=== PATIENT | male | born 1945 | race Caucasian/White ===

== ENCOUNTER → 2018-04-13 09:57 | Outpatient (CLI) | payer MEDICARE, OTHER, SELFPAY | PROVIDERS: PCP Family Medicine; Visit Provider Family Medicine | DX: Z00.00 Encounter for general adult medical examination without abnormal findings (principal) | CPT/HCPCS: 84153 ==

== ENCOUNTER 2018-11-04 06:45 | Day surgery (SDC) | payer MEDICARE, OTHER, SELFPAY ==
[2018-11-04] VITALS (7 sets, daily range): BP systolic 88–110; BP diastolic 51–68; PULSE 48–56; RESP 10–16; TEMP 36.1–36.3; O2SAT 95–99; BMI 26.5
--- NOTE | 2018-11-04 | PATH_ITS ---
[facility] Accession Number: [id number] . 01 Material submitted: . ASCENDING COLON NEAR CECUM POLYP . 02 Diagnosis: Ascending Colon Polyp, Near Cecum: Tubular adenoma. MRV/11/07/2018 . 02 Electronically signed: . Ash Grant MD, PhD, Pathologist NPI- [id number] . 01 Gross description: . Received one formalin-filled container labeled with the patient's name and labeled ascending colon near cecum polyp. The specimen consists of two 0.2-0.3 cm portions of tissue, entirely submitted in one cassette. ([id number]) /FRR . 02 Pathologist provided ICD-10: D12.2 . 02 CPT . 771547 Performed at: [address] [facility] [address] [id number] MD Carlos Mae MD Phone: [phone] Performed at: 02 [facility] [address] [place], [place] [id number] MD Zoe Rogers MD Phone: [phone]
--- NOTE | 2018-11-04 08:17 | PM.HP.1 ---
History of Present Illness Date Patient Seen: 11/04/18 Time Patient Seen: 08:10 Chief complaint: [id number] Narrative: Patient here for screening colonoscopy. Last exam 10 years ago. No history of colon cancer. Patient History Medical History History of cataract (Chronic) History of hearing loss (Chronic) History of sleep apnea (Chronic) History of atrial fibrillation (Resolved) Surgical History History of cardiac radiofrequency ablation (RFA) History of cardiac radiofrequency ablation (RFA) Status post knee surgery Family & Social History Family History: Reviewed 11/04/18 by Sergey Alvarado MD Social History: household members spouse Tobacco & Substance use: Smoking Status Never smoker Meds Home Medications Medication Instructions Recorded Confirmed Type ezetimibe 10 mg tablet 10 mg PO DAILY 04/13/18 11/04/18 History pravastatin 40 mg PO HS #90 tab 07/22/18 11/04/18 Rx aspirin 81 mg PO DAILY 11/04/18 11/04/18 History Allergies Allergy/AdvReac Type Severity Reaction Status Date / Time codeine [CODEINE] Allergy Intermediate MIGRAINE Verified 11/04/18 07:44 Review of Systems Review of Systems All systems reviewed & are unremarkable except as noted in HPI and below Exam Vital Signs (past 8 hours): - 11/04/18 07:10 11/04/18 07:43 Temperature 97.3 F L Pulse Rate 54 L Respiratory Rate 16 Blood Pressure 110/68 Pulse Oximetry 99 Oxygen Delivery Method Room Air Narrative Exam Narrative: Co Operative no apparent distress. Lungs clear to auscultation no rales or rhonchi heart regular rate and rhythm without murmur or gallop abdomen is mildly protuberant soft nontender without mass. Alert and oriented x3 Assessment & Plan Plan: Assessment/Plan Narrative: Patient for screening colonoscopy. I have discussed the procedure and the rationale with the patient including risks of bleeding, perforation which would necessitate a major operation, failure to find remove all lesions and the potential to tattoo. They appeared to understand and wished to proceed.
--- NOTE | 2018-11-04 08:20 | PM.PREOP ---
Pre-operative Note Interval Note Pre-op Check: Yes History & Physical exam performed today by Physician Changes: No ASA Class (for procedural sedation): II
[2018-11-04] MEDS: fentaNYL 250 MCG/5 ML INJ IV (08:59)
[2018-11-04] MEDS: MIDAZOLAM 5 MG/5 ML VIAL IV (09:01)
--- NOTE | 2018-11-04 09:11 | PM.OP.ENDO ---
Operative Date/Time/Diagnoses Date of procedure: 11/04/18 Time of procedure: 09:00 Pre-op diagnosis: Screening exam in Post-op diagnosis: same (Small polyp in the ascending colon. Sigmoid diverticulosis extensive. Internal hemorrhoids) Procedure & Clinicians Study performed: Colonoscopy with cold biopsy Same procedure as scheduled: Yes Indications: Screening. Last exam 10 years ago. Surgeon: Sergey Alvarado Procedure Notes SCOAP/Timeout: Performed Procedure in detail: The patient was placed in left lateral decubitus position underwent IV sedation directed by the surgeon consisting fentanyl Versed. Digital exam was remarkable for enlarged prostate. Scope was advanced through the rectum sigmoid where encountered numerous diverticuli. We continued on in the descending and transverse colon. Pressure was applied in a stiffener so on the ascending colon side of the ileocecal valve there was a small polypoid lesion which I biopsied and removed. The scope was gradually brought out. No other lesions were seen. The scope was retroflexed in the rectum. Patient had some small internal hemorrhoids with scarring. No active ulcerations seen. The scope was removed the patient tolerated the procedure well Scope withdrawal time: 9 min Sedation minutes: 26 Findings: diverticulosis, internal hemorrhoids, polyp and other findings (Enlarged prostate) Specimen(s): other (Polyps) Complications: none Recommendations: Colonscopy in 5 years Follow up: as needed Disposition: PACU
--- NOTE | 2018-11-04 09:15 | P.OP.ENDO_ITS ---
Operative Date/Time/Diagnoses Date of procedure: 11/04/18 Time of procedure: 09:00 Pre-op diagnosis: Screening exam in Post-op diagnosis: same (Small polyp in the ascending colon. Sigmoid diverticulosis extensive. Internal hemorrhoids) Procedure & Clinicians Study performed: Colonoscopy with cold biopsy Same procedure as scheduled: Yes Indications: Screening. Last exam 10 years ago. Surgeon: Sergey Alvarado Procedure Notes SCOAP/Timeout: Performed Procedure in detail: The patient was placed in left lateral decubitus position underwent IV sedation directed by the surgeon consisting fentanyl Versed. Digital exam was remarkable for enlarged prostate. Scope was advanced through the rectum sigmoid where encountered numerous diverticuli. We continued on in the descending and transverse colon. Pressure was applied in a stiffener so on the ascending colon side of the ileocecal valve there was a small polypoid lesion which I biopsied and removed. The scope was gradually brought out. No other lesions were seen. The scope was retroflexed in the rectum. Patient had some small internal hemorrhoids with scarring. No active ulcerations seen. The scope was removed the patient tolerated the procedure well Scope withdrawal time: 9 min Sedation minutes: 26 Findings: diverticulosis, internal hemorrhoids, polyp and other findings ( Enlarged prostate) Specimen(s): other (Polyps) Complications: none Recommendations: Colonscopy in 5 years Follow up: as needed Disposition: PACU
[2018-11-04] MEDS: SODIUM CHLORIDE 0.9% 1,000 ML 200 ML IV (09:21)
== END 2018-11-04 10:16 | disposition home or self-care (01) ==
PROVIDERS: PCP Family Medicine; Visit Provider Specialist
PROC: 0DJD8ZZ Inspection of Lower Intestinal Tract, Via Natural or Artificial Opening Endoscopic (ICD-10-PCS; CPT 45378; principal; 2018-11-04 07:45)
DX: Z12.11 Encounter for screening for malignant neoplasm of colon (principal); K57.30 Diverticulosis of large intestine without perforation or abscess without bleeding; K64.8 Other hemorrhoids; N40.0 Benign prostatic hyperplasia without lower urinary tract symptoms; D12.2 Benign neoplasm of ascending colon
CPT/HCPCS: 45380; 88305; 99152; 99153; J2250; J3010

== ENCOUNTER 2018-12-05 11:21 | Emergency (ER) | payer MEDICARE, OTHER, SELFPAY ==
[2018-12-05 11:28] VITALS: BP 133/86; PULSE 55; RESP 15; TEMP 36.9; O2SAT 98; BMI 26.5
--- NOTE | 2018-12-05 12:41 | DI.RAD.S_ITS ---
PROCEDURE: XR CHEST 1V INDICATIONS: chest pain TECHNIQUE: One view of the chest was acquired. COMPARISON: None. FINDINGS: Surgical changes and devices: None. Lungs and pleura: No pleural effusions or pneumothorax. Lungs are clear. Mediastinum: Mediastinal contours appear normal. Heart size is normal. Bones and chest wall: No suspicious bony lesions. Overlying soft tissues appear unremarkable. IMPRESSION: Normal for age, source of current chest pain symptoms is not seen. Dictated by: Mk Lauren M.D. on 12/05/2018 at 13:11 Approved by: Mk Lauren M.D. on 12/05/2018 at 13:11
[2018-12-05 12:55] LABS: Add Manual Diff / Slide Review NO; Basophils Absolute Auto 0 /uL (0-100); Basophils Percent Auto 0.4 % (0-2); Eosinophils Absolute Auto 300 /uL (0-450); Eosinophils Percent Auto 3.5 % (2-4); Hematocrit 43.7 % (41-53); Hemoglobin 14.5 g/dL (13.5-17.5); Lymphocytes Absolute Auto 2100 /uL (1100-4500); Lymphocytes Percent Auto 28.4 % (25-40); Mean Corpuscular HGB Conc 33.2 % (30-36); Mean Corpuscular Hemoglobin 29.6 PG (26-34); Mean Corpuscular Volume 89.3 fL (80-100); Monocytes Absolute Auto 600 /uL (0-900); Monocytes Percent Auto 7.4 % (3-14); Neutrophils Absolute Auto 4500 /uL (1500-7000); Neutrophils Percent Auto 60.3 % (50-75); Platelet Count 180 X10^3/uL (150-400); Red Cell Distribution Width 13.5 % (11.6-14.8); White Blood Cell Count 7.4 X10^3/uL (4.5-11.0)
[2018-12-05 12:58] LABS: Alanine Aminotransferase 36 IU/L (21-72); Albumin 4.2 g/dL (3.5-5.0); Albumin Globulin Ratio 1.3 (1.0-2.8); Alkaline Phosphatase 43 U/L (38-126); Aspartate Aminotransferase 29 IU/L (17-59); BUN Creatinine Ratio 23.3 (6-22); Bilirubin Total 0.7 mg/dL (0.2-1.3); Blood Urea Nitrogen 21 mg/dL (9-20); Calcium 9.4 mg/dL (8.4-10.2); Carbon Dioxide 26 mmol/L (22-32); Chloride 107 mmol/L (98-107); Creatine Kinase 51 U/L (55-170); Estimated Glomerular Filt Rate > 60.0 mL/min (>60); Globulin 3.3 g/dL (1.7-4.1); Glucose 129 mg/dL (80-110); HEMOLYSIS < 15 (0-50); Potassium 4.2 mmol/L (3.4-5.1); Sodium 143 mmol/L (137-145); Total Protein 7.5 g/dL (6.3-8.2)
[2018-12-05 13:00] VITALS: BP 108/58; PULSE 44; RESP 94; O2SAT 94
[2018-12-05 13:12] LABS: Troponin I < 0.012 ng/mL (0.01-0.034)
[2018-12-05 13:49] VITALS: BP 108/62; PULSE 54; RESP 15
--- NOTE | 2018-12-16 10:11 | ED.CHESTPAIN ---
HPI - Chest Pain General Chief Complaint: Chest Pain Stated Complaint: CHEST PAINS OFF AND ON X1 DAY Time Seen by Provider: 12/05/18 11:38 Source: patient Mode of arrival: ambulatory Limitations: no limitations History of Present Illness HPI narrative: Patient complains of palpitations and a pressure feeling in his chest on and off throughout the day for the last few days. He has a history of paroxysmal atrial fibrillation, and states he has had palpitations previously. Patient does note that he has occasionally felt lightheaded today, as well. He denies any actual pain in his chest. No dyspnea. No nausea or vomiting. Patient states that he has no history of coronary artery disease. Patient states he is feeling fine lying in the bed right now. Patient reports that he runs 5 miles several times a week, and has no problem with this. In fact, he states that in recent runs, the symptoms actually have improved while he was exercising. The patient has seen Dr. Juarez of Cardiology in the past, but since Dr. Juarez [facility], has not seen a paving supervisor. However, he states he was told that he would be assigned to another paving supervisor in the group. Related Data Home Medications Medication Instructions Recorded Confirmed ezetimibe 10 mg tablet 10 mg PO DAILY 04/13/18 12/05/18 aspirin 81 mg PO DAILY 11/04/18 12/05/18 pravastatin 40 mg PO BEDTIME 12/05/18 12/05/18 Allergies Allergy/AdvReac Type Severity Reaction Status Date / Time codeine [CODEINE] Allergy Intermediate MIGRAINE Verified 12/05/18 11:28 Review of Systems Constitutional Denies chills, Denies fever(s), Denies lethargy and Denies weakness Eyes Denies change in vision, Denies eye discharge, Denies irritation and Denies loss of vision ENT Ears, Nose, Mouth, and Throat: Denies change in voice, Denies neck pain and Denies sore throat Cardiovascular Denies chest pain, Denies irregular heart rhythm, Denies lightheadedness, Reports palpitations, Denies dyspnea, Denies dyspnea on exertion and Denies orthopnea Comments: Chest pressure Respiratory Denies cough, Denies dyspnea, Denies dyspnea on exertion and Denies wheezing Gastrointestinal Gastrointestinal: Denies abdominal pain, Denies change in bowel habits, Denies diarrhea, Denies nausea and Denies vomiting Genitourinary Denies hematuria, Denies flank pain, Denies urinary incontinence and Denies urinary urgency Musculoskeletal Denies neck pain Integumentary/Breasts Denies pruritus, Denies erythema, Denies rash and Denies wounds Neurologic Denies confusion, Denies loss of vision and Denies weakness Psychiatric Denies anxiety, Denies confusion, Denies depression, Denies homicidal ideation and Denies suicidal ideation Endocrine Reports palpitations Hematologic/Lymphatic Denies easy bruising Allergic/Immunologic Denies wheezing [facility] Medical History History of cataract (Chronic) History of hearing loss (Chronic) History of sleep apnea (Chronic) History of atrial fibrillation (Resolved) Surgical History History of cardiac radiofrequency ablation (RFA) History of cardiac radiofrequency ablation (RFA) Status post knee surgery Social History household members: spouse Smoking Status: Never smoker Social History household members: spouse Smoking Status: Never smoker Exam Initial Vital Signs Initial Vital Signs: Vital Signs Temperature 98.5 F 12/05/18 11:28 Pulse Rate 55 L 12/05/18 11:28 Respiratory Rate 15 12/05/18 11:28 Blood Pressure 133/86 12/05/18 11:28 Pulse Oximetry 98 12/05/18 11:28 Const General: cooperative, healthy appearing, well developed and No in distress Nutritional Appearance: well nourished Orientation: alert, awake, oriented x3 and not confused Other: Patient is very well appearing. [facility] Head: normocephalic and atraumatic Ears: external ears normal Nose: external nose normal and No nasal discharge Face and sinus: face symmetric and No dry mucous membranes Mouth: oral mucosae normal and moist mucous membranes Teeth and gingiva: dentition normal Eyes General: appearance normal, both eyes and all related structures Eyelids: eyelids normal Conjunctivae: conjunctivae normal Sclera: sclerae normal Pupils: PERRL EOM: EOM intact bilaterally Neck Neck: normal visual inspection, trachea midline, No lymphadenopathy, No midline deformity and No JVD Lymphatic: No lymphedema Chest Chest: normal inspection of the chest Resp Effort & Inspection: normal respiratory effort, able to speak in complete sentences, no respiratory distress and no use of accessory muscles Auscultation: clear to auscultation bilaterally, no rales, no rhonchi and no wheezes Cardio Rate: bradycardic Rhythm: regular rhythm Heart Sounds: no click, no gallops, no murmurs and no rubs Pulses: normal peripheral pulses GI Inspection: non-distended Palpation: soft, no hepatosplenomegaly, No guarding, No pulsatile mass and No tender Auscultation: normal bowel sounds Back/Spine/Pelvis Back: No CVA tenderness Cervical Spine: cervical ROM normal and No pain with cervical ROM Thoracic/Lumbar Spine: thoracic and lumbar spine normal to inspection Skin General: no rashes or lesions noted, No jaundice and No petechiae Neuro General: alert, oriented x3, gait normal and no focal motor deficits Speech: speech normal Extrem General: full ROM, no clubbing, cyanosis or edema, no pedal edema and no calf tenderness Psych Appearance: well kempt Mental Status: mental status grossly normal Attitude: cooperative Thought Content: normal and suicidality Judgment: judgment good Course Course Narrative: The patient overall appeared well, though he was found to be mildly bradycardic. His laboratory studies were unremarkable. Patient was kept on the residential monitor here in the emergency department, and EKG was performed, showing sinus bradycardia and sinus arrhythmia.. This patient had a history of a high-level of fitness, and reported running a number of miles a week. With this, he had not had any cardiac symptoms, and in fact, felt that his symptoms improved when exercising. I did not feel this patient had had a coronary event, and I felt the likelihood of coronary artery disease in this patient was low, given his fitness level. I did feel he should follow up with Cardiology and his primary care physician to further evaluate his symptoms, however, and patient was agreeable to this plan. We have discussed the usual indications for return. MDM - Chest Pain Medical Records Data Attestation: I reviewed the patient's medical records. Lab Data Attestation: I reviewed the patient's lab results. Result diagrams: 12/05/18 11:45 12/05/18 11:45 Lab Results 12/05/18 12/05/18 Range/Units 11:45 11:45 WBC 7.4 (4.5-11.0) X10^3/uL RBC 4.90 (4.5-5.9) X10^6/uL Hgb 14.5 (13.5-17.5) g/dL Hct 43.7 (41-53) % MCV 89.3 (80-100) fL MCH 29.6 (26-34) PG MCHC 33.2 (30-36) % RDW 13.5 (11.6-14.8) % Plt Count 180 (150-400) X10^3/uL Neut % (Auto) 60.3 (50-75) % Lymph % (Auto) 28.4 (25-40) % Stafford % (Auto) 7.4 (3-14) % Eos % (Auto) 3.5 (2-4) % Baso % (Auto) 0.4 (0-2) % Neut # (Auto) 4500 (7014-6601) /uL Lymph # (Auto) 2100 (7945-3023) /uL Stafford # (Auto) 600 (0-900) /uL Eos # (Auto) 300 (0-450) /uL Baso # (Auto) 0 (0-100) /uL Sodium 143 (137-145) mmol/L Potassium 4.2 (3.4-5.1) mmol/L Chloride 107 (98-107) mmol/L Carbon Dioxide 26 (22-32) mmol/L BUN 21 H (9-20) mg/dL Creatinine 0.90 (0.66-1.25) mg/dL Estimated GFR > 60.0 (>60) mL/min BUN/Creatinine Ratio 23.3 H (6-22) Glucose 129 H (80-110) mg/dL Calcium 9.4 (8.4-10.2) mg/dL Total Bilirubin 0.7 (0.2-1.3) mg/dL AST 29 (17-59) IU/L ALT 36 (21-72) IU/L Alkaline Phosphatase 43 (38-126) U/L Total Creatine Kinase 51 L (55-170) U/L CK-MB (CK-2) TNP CK-MB (CK-2) Rel Index TNP Troponin I < 0.012 (0.01-0.034) ng/mL Total Protein 7.5 (6.3-8.2) g/dL Albumin 4.2 (3.5-5.0) g/dL Globulin 3.3 (1.7-4.1) g/dL Albumin/Globulin Ratio 1.3 (1.0-2.8) Imaging Data Chest x-ray: Radiologist's impression: [address] [address] XRay Report Signed Patient: Kal Grimm FMR#: [id number] : 7Acct:[id number] Age/Sex: 73 / MDate of Service: 12/05/18 Loc: ED Accession Number: [id number] Procedure: XR chest 1V Ordering Provider: Kaylah Helton MD PROCEDURE: XR CHEST 1V INDICATIONS: chest pain TECHNIQUE: One view of the chest was acquired. COMPARISON: None. FINDINGS: Surgical changes and devices: None. Lungs and pleura: No pleural effusions or pneumothorax. Lungs are clear. Mediastinum: Mediastinal contours appear normal. Heart size is normal. Bones and chest wall: No suspicious bony lesions. Overlying soft tissues appear unremarkable. IMPRESSION: Normal for age, source of current chest pain symptoms is not seen. Dictated by: Mk Lauren M.D. on 12/05/2018 at 13:11 Approved by: Mk Lauren M.D. on 12/05/2018 at 13:11 Discharge Plan Departure Patient Disposition: Home Clinical Impression: Chest pain, Bradycardia Discharge Date/Time: 12/05/18 14:16 Interventions: ED Discharge Assessment Last Done: 12/05/18 14:15 Instructions: DI for Chest Pain, DI for Bradycardia Activity Restrictions/Additional Instructions: Urine labs and EKG look good, as does your x-ray. There is no evidence of any of the serious causes of chest pain at this time. However, the best plan would be to follow up with your paving supervisor to see if you should have a repeat stress test done. You should also discuss with your paving supervisor why your heart rate is dropping low. Please call their office 1st thing tomorrow morning to set up a follow-up appointment. If any symptoms worsen, please return to the emergency department. Prescriptions: No Action ezetimibe 10 mg tablet 10 mg PO DAILY RF: 0 aspirin 81 mg Tablet,Delayed Release (Dr/Ec) 81 mg PO DAILY RF: 0 pravastatin 40 mg tablet 40 mg PO BEDTIME RF: 0 Referrals: Caryn Rivas DO [Primary Care Provider] -
--- NOTE | 2018-12-16 10:14 | ED_ITS ---
HPI - Chest Pain General Chief Complaint: Chest Pain Stated Complaint: CHEST PAINS OFF AND ON X1 DAY Time Seen by Provider: 12/05/18 11:38 Source: patient Mode of arrival: ambulatory Limitations: no limitations History of Present Illness HPI narrative: Patient complains of palpitations and a pressure feeling in his chest on and off throughout the day for the last few days. He has a history of paroxysmal atrial fibrillation, and states he has had palpitations previously. Patient does note that he has occasionally felt lightheaded today, as well. He denies any actual pain in his chest. No dyspnea. No nausea or vomiting. Patient states that he has no history of coronary artery disease. Patient states he is feeling fine lying in the bed right now. Patient reports that he runs 5 miles several times a week, and has no problem with this. In fact, he states that in recent runs, the symptoms actually have improved while he was exercising. The patient has seen Dr. Juarez of Cardiology in the past, but since Dr. Juarez fci, has not seen a race relations professor. However, he states he was told that he would be assigned to another race relations professor in the group. Related Data Home Medications Medication Instructions Recorded Confirmed ezetimibe 10 mg tablet 10 mg PO DAILY 04/13/18 12/05/18 aspirin 81 mg PO DAILY 11/04/18 12/05/18 pravastatin 40 mg PO BEDTIME 12/05/18 12/05/18 Allergies Allergy/AdvReac Type Severity Reaction Status Date / Time codeine [CODEINE] Allergy Intermediate MIGRAINE Verified 12/05/18 11:28 Review of Systems Constitutional Denies chills, Denies fever(s), Denies lethargy and Denies weakness Eyes Denies change in vision, Denies eye discharge, Denies irritation and Denies loss of vision ENT Ears, Nose, Mouth, and Throat: Denies change in voice, Denies neck pain and Denies sore throat Cardiovascular Denies chest pain, Denies irregular heart rhythm, Denies lightheadedness, Reports palpitations, Denies dyspnea, Denies dyspnea on exertion and Denies orthopnea Comments: Chest pressure Respiratory Denies cough, Denies dyspnea, Denies dyspnea on exertion and Denies wheezing Gastrointestinal Gastrointestinal: Denies abdominal pain, Denies change in bowel habits, Denies diarrhea, Denies nausea and Denies vomiting Genitourinary Denies hematuria, Denies flank pain, Denies urinary incontinence and Denies urinary urgency Musculoskeletal Denies neck pain Integumentary/Breasts Denies pruritus, Denies erythema, Denies rash and Denies wounds Neurologic Denies confusion, Denies loss of vision and Denies weakness Psychiatric Denies anxiety, Denies confusion, Denies depression, Denies homicidal ideation and Denies suicidal ideation Endocrine Reports palpitations Hematologic/Lymphatic Denies easy bruising Allergic/Immunologic Denies wheezing [facility] Medical History History of cataract (Chronic) History of hearing loss (Chronic) History of sleep apnea (Chronic) History of atrial fibrillation (Resolved) Surgical History History of cardiac radiofrequency ablation (RFA) History of cardiac radiofrequency ablation (RFA) Status post knee surgery Social History household members: spouse Smoking Status: Never smoker Social History household members: spouse Smoking Status: Never smoker Exam Initial Vital Signs Initial Vital Signs: Vital Signs Temperature 98.5 F 12/05/18 11:28 Pulse Rate 55 L 12/05/18 11:28 Respiratory Rate 15 12/05/18 11:28 Blood Pressure 133/86 12/05/18 11:28 Pulse Oximetry 98 12/05/18 11:28 Const General: cooperative, healthy appearing, well developed and No in distress Nutritional Appearance: well nourished Orientation: alert, awake, oriented x3 and not confused Other: Patient is very well appearing. [facility] Head: normocephalic and atraumatic Ears: external ears normal Nose: external nose normal and No nasal discharge Face and sinus: face symmetric and No dry mucous membranes Mouth: oral mucosae normal and moist mucous membranes Teeth and gingiva: dentition normal Eyes General: appearance normal, both eyes and all related structures Eyelids: eyelids normal Conjunctivae: conjunctivae normal Sclera: sclerae normal Pupils: PERRL EOM: EOM intact bilaterally Neck Neck: normal visual inspection, trachea midline, No lymphadenopathy, No midline deformity and No JVD Lymphatic: No lymphedema Chest Chest: normal inspection of the chest Resp Effort & Inspection: normal respiratory effort, able to speak in complete sentences, no respiratory distress and no use of accessory muscles Auscultation: clear to auscultation bilaterally, no rales, no rhonchi and no wheezes Cardio Rate: bradycardic Rhythm: regular rhythm Heart Sounds: no click, no gallops, no murmurs and no rubs Pulses: normal peripheral pulses GI Inspection: non-distended Palpation: soft, no hepatosplenomegaly, No guarding, No pulsatile mass and No tender Auscultation: normal bowel sounds Back/Spine/Pelvis Back: No CVA tenderness Cervical Spine: cervical ROM normal and No pain with cervical ROM Thoracic/Lumbar Spine: thoracic and lumbar spine normal to inspection Skin General: no rashes or lesions noted, No jaundice and No petechiae Neuro General: alert, oriented x3, gait normal and no focal motor deficits Speech: speech normal Extrem General: full ROM, no clubbing, cyanosis or edema, no pedal edema and no calf tenderness Psych Appearance: well kempt Mental Status: mental status grossly normal Attitude: cooperative Thought Content: normal and suicidality Judgment: judgment good Course Course Narrative: The patient overall appeared well, though he was found to be mildly bradycardic. His laboratory studies were unremarkable. Patient was kept on the cardiac rn here in the emergency department, and EKG was performed, showing sinus bradycardia and sinus arrhythmia.. This patient had a history of a high-level of fitness, and reported running a number of miles a week. With this, he had not had any cardiac symptoms, and in fact, felt that his symptoms improved when exercising. I did not feel this patient had had a coronary event, and I felt the likelihood of coronary artery disease in this patient was low, given his fitness level. I did feel he should follow up with Cardiology and his primary care physician to further evaluate his symptoms, however, and patient was agreeable to this plan. We have discussed the usual indications for return. MDM - Chest Pain Medical Records Data Attestation: I reviewed the patient's medical records. Lab Data Attestation: I reviewed the patient's lab results. Result diagrams: 12/05/18 11:45 12/05/18 11:45 Lab Results 12/05/18 12/05/18 Range/Units 11:45 11:45 WBC 7.4 (4.5-11.0) X10^3/uL RBC 4.90 (4.5-5.9) X10^6/uL Hgb 14.5 (13.5-17.5) g/dL Hct 43.7 (41-53) % MCV 89.3 (80-100) fL MCH 29.6 (26-34) PG MCHC 33.2 (30-36) % RDW 13.5 (11.6-14.8) % Plt Count 180 (150-400) X10^3/uL Neut % (Auto) 60.3 (50-75) % Lymph % (Auto) 28.4 (25-40) % K[place]y % (Auto) 7.4 (3-14) % Eos % (Auto) 3.5 (2-4) % Baso % (Auto) 0.4 (0-2) % Neut # (Auto) 4500 (7517-9904) /uL Lymph # (Auto) 2100 (3332-8668) /uL K[place]y # (Auto) 600 (0-900) /uL Eos # (Auto) 300 (0-450) /uL Baso # (Auto) 0 (0-100) /uL Sodium 143 (137-145) mmol/L Potassium 4.2 (3.4-5.1) mmol/L Chloride 107 (98-107) mmol/L Carbon Dioxide 26 (22-32) mmol/L BUN 21 H (9-20) mg/dL Creatinine 0.90 (0.66-1.25) mg/dL Estimated GFR > 60.0 (>60) mL/min BUN/Creatinine Ratio 23.3 H (6-22) Glucose 129 H (80-110) mg/dL Calcium 9.4 (8.4-10.2) mg/dL Total Bilirubin 0.7 (0.2-1.3) mg/dL AST 29 (17-59) IU/L ALT 36 (21-72) IU/L Alkaline Phosphatase 43 (38-126) U/L Total Creatine Kinase 51 L (55-170) U/L CK-MB (CK-2) TNP CK-MB (CK-2) Rel Index TNP Troponin I < 0.012 (0.01-0.034) ng/mL Total Protein 7.5 (6.3-8.2) g/dL Albumin 4.2 (3.5-5.0) g/dL Globulin 3.3 (1.7-4.1) g/dL Albumin/Globulin Ratio 1.3 (1.0-2.8) Imaging Data Chest x-ray: Radiologist's impression: [address] [address] XRay Report Signed Patient: Kal Grimm FMR#: [id number] : 7Acct:[id number] Age/Sex: 73 / MDate of Service: 12/05/18 Loc: ED Accession Number: [id number] Procedure: XR chest 1V Ordering Provider: Kaylah Helton MD PROCEDURE: XR CHEST 1V INDICATIONS: chest pain TECHNIQUE: One view of the chest was acquired. COMPARISON: None. FINDINGS: Surgical changes and devices: None. Lungs and pleura: No pleural effusions or pneumothorax. Lungs are clear. Mediastinum: Mediastinal contours appear normal. Heart size is normal. Bones and chest wall: No suspicious bony lesions. Overlying soft tissues appear unremarkable. IMPRESSION: Normal for age, source of current chest pain symptoms is not seen. Dictated by: Mk Lauren M.D. on 12/05/2018 at 13:11 Approved by: Mk Lauren M.D. on 12/05/2018 at 13:11 Discharge Plan Departure Patient Disposition: Home Clinical Impression: Chest pain, Bradycardia Discharge Date/Time: 12/05/18 14:16 Interventions: ED Discharge Assessment Last Done: 12/05/18 14:15 Instructions: DI for Chest Pain, DI for Bradycardia Activity Restrictions/Additional Instructions: Urine labs and EKG look good, as does your x-ray. There is no evidence of any of the serious causes of chest pain at this time. However, the best plan would be to follow up with your race relations professor to see if you should have a repeat stress test done. You should also discuss with your race relations professor why your heart rate is dropping low. Please call their office 1st thing tomorrow morning to set up a follow-up appointment. If any symptoms worsen, please return to the emergency department. Prescriptions: No Action ezetimibe 10 mg tablet 10 mg PO DAILY RF: 0 aspirin 81 mg Tablet,Delayed Release (Dr/Ec) 81 mg PO DAILY RF: 0 pravastatin 40 mg tablet 40 mg PO BEDTIME RF: 0 Referrals: Caryn Rivas DO [Primary Care Provider] -
== END 2018-12-05 14:16 | disposition home or self-care (01) ==
PROVIDERS: Emergency Provider Emergency Medicine; PCP Family Medicine
DX: R07.89 Other chest pain (principal); R00.1 Bradycardia, unspecified
CPT/HCPCS: 36591; 71045; 80053; 82550; 84484; 85025; 93005; 93010; 93041; 99283; 99285

== ENCOUNTER → 2019-03-01 08:10 | Outpatient (CLI) | payer MEDICARE, OTHER, SELFPAY ==
--- NOTE | 2019-03-01 | DI.ECHO.S_ITS ---
[facility]---------+ [facility] +---------+ : : [address] [place] : : : : [id number] : : : : Phone: [phone] Echocardiogram Report + + :Name: ZACK MOTA Study Date: 03/01/2019 Height: 70 in : :[facility] Location: [facility] Weight: 193 lb : : Gender: Male BSA: 2.1 m2 : :: 1945 Age: 73 yrs BP: 120/80 mmHg: :Reason For Study: S/P ablation of Atrial Fibrillation : :Ordering Physician: Jose Antonio : :Yelena Tovar Performed By: Ese Page : + + Interpretation Summary The left ventricle is normal in size. There is normal left ventricular wall thickness. The ejection fraction is estimated to be 60-65%. There are no focal wall motion abnormalities. The right ventricle is normal in size and function. Pulmonary artery pressures cannot be estimated because of the lack of a measurable TR jet velocity. The left atrium is moderately dilated. No significant valvular abnormalities. No prior echo for comparison. Procedure: A two-dimensional transthoracic echocardiogram with color flow and Doppler was performed. The study quality was technically adequate. There is no prior echocardiogram noted for this patient. The heart rate ranged between 47-56 bpm during the study. Left Ventricle: The left ventricle is normal in size. There is normal left ventricular wall thickness. The ejection fraction is estimated to be 60-65%. There are no focal wall motion abnormalities. There is a significant dyssynchronous contraction pattern, consistent with a conduction abnormality. Diastolic parameters suggest probable normal left ventricular diastolic function and normal filling pressures. Right Ventricle: The right ventricle is normal in size and function. Atria: The left atrium is moderately dilated. Right atrial size is normal. There is no Doppler evidence for an interatrial shunt. Mitral Valve: There is a flat closure plane of the the mitral valve leaflets. There is trace mitral regurgitation. Aortic Valve: The aortic valve is trileaflet. The aortic valve opens well. The aortic valve is slightly calcified. No aortic regurgitation is present. Tricuspid Valve: The tricuspid valve is normal in structure and function. There is a trace or physiologic amount of tricuspid regurgitation. Pulmonary artery pressures cannot be estimated because of the lack of a measurable TR jet velocity. Pulmonic Valve: The pulmonic valve is not well seen, but is grossly normal. There is trace pulmonic regurgitation. Great Vessels: The aortic root is normal size. The ascending aorta is mildly enlarged. The pulmonary artery is not well visualized, but is probably normal size. The IVC is of normal diameter and collapses greater than 50% with a sniff. This suggests a low right atrial pressure of 3 mm Hg. Pericardium/ Pleura There is no pericardial effusion. There is no pleural effusion. MMode/2D Measurements & Calculations LVIDd: 4.4 cm LVOT diam: 2.2 cm LVIDs: 2.8 cm Ao root diam: 3.7 cm FS: 38.0 % asc Aorta Diam: 3.5 cm EPSS: 0.21 cm IVSd: 0.86 cm LVPWd: 0.88 cm LV strange. diameter/BSA (cm/m^2): 2.2 LV sys. diameter/BSA (cm/m^2): 1.3 LA A2 area: 28.3 cm2 RA long axis: 5.6 cm LA A4 area: 29.2 cm2 RA area: 18.1 cm2 LA length (vol): 6.4 cm RA vol: 49.9 ml LA vol: 109.6 ml RA : 24.3 ml/m2 LA vol index: 53.3 ml/m2 IVC diam: 1.7 cm RVD1 (basal): 4.2 cm TAPSE: 2.8 cm Doppler Measurements & Calculations Ao V2 max: 176.1 cm/sec LVOT Max Deangelo: 98.4 cm/sec Ao V2 mean: 120.7 cm/sec LV V1 max P.9 mmHg Ao max P.4 mmHg LV V1 VTI: 21.1 cm Ao mean P.6 mmHg KATINA(I,D): 2.2 cm2 Ao V2 VTI: 35.1 cm KATINA(V,D): 2.1 cm2 sev ratio: 0.60 KATINA indexed to BSA (cm^2/m^2): 1.1 MV E max deangelo: 80.2 cm/sec PA V2 max: 59.9 cm/sec MV A max deangelo: 41.8 cm/sec PA V2 mean: 41.8 cm/sec MV E/A: 1.9 PA mean P.77 mmHg Med Peak E' Deangelo: 8.7 cm/sec PA Accel Time: 0.10 sec E/E' med: 9.2 Lat Peak E' Deangelo: 11.2 cm/sec E/E' lat: 7.2 E/e' average: 8.2 MV dec time: 0.17 sec MV P1/2t: 49.7 msec MV P1/2t max deangelo: 81.3 cm/sec SV(LVOT): 78.1 ml MVA(2t): 4.4 cm2 Electronically signed by: Jose Antonio Kirk M.D. on Reading Physician:03/01/2019 05:30 PM
== END ==
PROVIDERS: PCP Family Medicine; Visit Provider Hospitalist
DX: I48.91 Unspecified atrial fibrillation (principal); I51.7 Cardiomegaly; Z98.890 Other specified postprocedural states
CPT/HCPCS: 93306

== ENCOUNTER → 2020-05-10 11:43 | Outpatient (CLI) | payer MEDICARE, OTHER, SELFPAY ==
[2020-05-10 12:21] LABS: Add Manual Diff / Slide Review NO; Basophils Absolute Auto 0 /uL (0-100); Basophils Percent Auto 0.5 % (0-2); Eosinophils Absolute Auto 400 /uL (0-450); Hematocrit 42.7 % (41-53); Hemoglobin 14.1 g/dL (13.5-17.5); Lymphocytes Absolute Auto 2900 /uL (1100-4500); Lymphocytes Percent Auto 28.6 % (25-40); Mean Corpuscular HGB Conc 33.1 % (30-36); Mean Corpuscular Hemoglobin 29.6 PG (26-34); Mean Corpuscular Volume 89.5 fL (80-100); Monocytes Absolute Auto 900 /uL (0-900); Monocytes Percent Auto 9.3 % (3-14); Neutrophils Absolute Auto 5800 /uL (1500-7000); Neutrophils Percent Auto 57.6 % (50-75); Platelet Count 181 X10^3/uL (150-400); Red Blood Cell Count 4.77 X10^6/uL (4.5-5.9); Red Cell Distribution Width 14.1 % (11.6-14.8)
[2020-05-10 12:35] LABS: Alanine Aminotransferase 27 IU/L (<50); Albumin 4.1 g/dL (3.5-5.0); Albumin Globulin Ratio 1.3 (1.0-2.8); Alkaline Phosphatase 38 U/L (38-126); Aspartate Aminotransferase 33 IU/L (17-59); BUN Creatinine Ratio 40.4 (6-22); Bilirubin Total 0.5 mg/dL (0.2-1.3); Blood Urea Nitrogen 36 mg/dL (9-20); Carbon Dioxide 30 mmol/L (22-32); Chloride 107 mmol/L (98-107); Creatine Kinase 63 U/L (55-170); Estimated Glomerular Filt Rate > 60.0 mL/min (>60); Globulin 3.1 g/dL (1.7-4.1); Glucose 87 mg/dL (80-110); HEMOLYSIS < 15 (0-50); Sodium 141 mmol/L (137-145); Total Protein 7.2 g/dL (6.3-8.2)
== END ==
PROVIDERS: PCP Family Medicine; Referring Provider Hospitalist; Visit Provider Hospitalist
DX: K83.1 Obstruction of bile duct (principal)
CPT/HCPCS: 36415; 80053; 82550; 85025

== ENCOUNTER → 2020-06-11 11:50 | Outpatient (CLI) | payer MEDICARE, OTHER, SELFPAY ==
[2020-06-11 13:29] LABS: Cholesterol 200 mg/dL (140-199); HDL Cholesterol 33 mg/dL (40-60); LDL Cholesterol Calculated 129 mg/dL (<100); Triglycerides 189 mg/dL (35-150)
[2020-06-11 15:33] LABS: Prostate Specific Antigen Scrn 2.66 ng/mL (0.1-4.0)
== END ==
PROVIDERS: PCP Family Medicine; Referring Provider Hospitalist; Visit Provider Hospitalist
DX: I48.0 Paroxysmal atrial fibrillation (principal); E78.5 Hyperlipidemia, unspecified; Z12.5 Encounter for screening for malignant neoplasm of prostate
CPT/HCPCS: 36415; 80061; G0103

== ENCOUNTER → 2020-07-30 15:39 | Outpatient (CLI) | payer MEDICARE, OTHER, SELFPAY ==
[2020-07-30 16:38] LABS: Influenza A - CEPHEID Flu A NEGATIVE (NEGATIVE); Influenza B - CEPHEID Flu B NEGATIVE (NEGATIVE)
[2020-07-31 19:05] LABS: COVID19 Sendout Not Detected (Not Detect)
== END ==
PROVIDERS: PCP Family Medicine; Visit Provider Physician Assistant
DX: Z11.59 Encounter for screening for other viral diseases (principal); R05 Cough
CPT/HCPCS: 87502; 87635

== ENCOUNTER → 2020-07-30 15:56 | Outpatient (CLI) | payer MEDICARE, OTHER, SELFPAY ==
--- NOTE | 2020-07-30 16:00 | DI.RAD.S_ITS ---
PROCEDURE: XR CHEST 2V INDICATIONS: cough TECHNIQUE: 2 views of the chest were acquired. COMPARISON: [facility], CR, XR CHEST 1V, 12/05/2018, 12:48. FINDINGS: Surgical changes and devices: None. Lungs and pleura: Subtle hazy opacities are seen in bilateral lower lung cook more prominent on the left side near left heart border better seen on AP view. No pleural effusions or pneumothorax. Mediastinum: Mediastinal contours are normal. Heart size is normal. Bones and chest wall: No suspicious bony abnormalities. Soft tissues appear unremarkable. IMPRESSION: Finding is concerning for subtle patchy bilateral lower lobe infiltrates. No pleural effusion or pneumothorax. Dictated by: Helder Daniel M.D. on 07/30/2020 at 16:21 Approved by: Helder Daniel M.D. on 07/30/2020 at 16:22
== END ==
PROVIDERS: PCP Family Medicine; Referring Provider Family Medicine; Visit Provider Family Medicine
DX: Z11.59 Encounter for screening for other viral diseases (principal); R05 Cough
CPT/HCPCS: 71046; 87502; 87635

== ENCOUNTER → 2020-08-07 09:15 | Outpatient (CLI) | payer MEDICARE, OTHER, SELFPAY ==
--- NOTE | 2020-08-07 09:37 | DI.RAD.S_ITS ---
PROCEDURE: XR CHEST 2V INDICATIONS: cough TECHNIQUE: 2 views of the chest were acquired. COMPARISON: , CR, XR CHEST 2V, 07/30/2020, 15:52. , CR, XR CHEST 1V, 12/05/2018, 12:48. FINDINGS: Surgical changes and devices: None. Lungs and pleura: Mild opacity at the left lung base which appears similar to the prior exam. Opacity at the right lung base is no longer apparent. No pleural effusions or pneumothorax. Mediastinum: Mediastinal contours are unchanged. Heart size is within normal limits. Bones and chest wall: No suspicious bony abnormalities. Soft tissues appear unremarkable. IMPRESSION: Mild opacity at the left lung base is similar to the prior exam. This is suspicious for pneumonia. Resolved opacity at the right lung base likely atelectasis. Dictated by: Oracio Hill M.D. on 08/07/2020 at 10:13 Approved by: Oracio Hill M.D. on 08/07/2020 at 10:15
[2020-08-07 09:45] LABS: Bacteria Urine None Seen; RBC Urine None Seen (0-5/HPF); WBC Urine None Seen (0-5/HPF)
[2020-08-07 10:11] LABS: Add Manual Diff / Slide Review NO; Basophils Absolute Auto 0 /uL (0-100); Basophils Percent Auto 0.3 % (0-2); Eosinophils Absolute Auto 100 /uL (0-450); Eosinophils Percent Auto 0.6 % (2-4); Hematocrit 38.4 % (41-53); Hemoglobin 12.8 g/dL (13.5-17.5); Lymphocytes Absolute Auto 1600 /uL (1100-4500); Lymphocytes Percent Auto 14.5 % (25-40); Mean Corpuscular HGB Conc 33.3 % (30-36); Mean Corpuscular Hemoglobin 28.7 PG (26-34); Mean Corpuscular Volume 86.1 fL (80-100); Monocytes Absolute Auto 1300 /uL (0-900); Monocytes Percent Auto 11.4 % (3-14); Neutrophils Absolute Auto 8100 /uL (1500-7000); Neutrophils Percent Auto 73.2 % (50-75); Platelet Count 319 X10^3/uL (150-400); Red Blood Cell Count 4.46 X10^6/uL (4.5-5.9); Red Cell Distribution Width 12.8 % (11.6-14.8); White Blood Cell Count 11.1 X10^3/uL (4.5-11.0)
[2020-08-07 10:13] LABS: Alanine Aminotransferase 66 IU/L (<50); Albumin Globulin Ratio 0.9 (1.0-2.8); Alkaline Phosphatase 89 U/L (38-126); Aspartate Aminotransferase 47 IU/L (17-59); BUN Creatinine Ratio 23.7 (6-22); Bilirubin Total 0.6 mg/dL (0.2-1.3); Blood Urea Nitrogen 22 mg/dL (9-20); Calcium 9.9 mg/dL (8.4-10.2); Carbon Dioxide 31 mmol/L (22-32); Chloride 101 mmol/L (98-107); Estimated Glomerular Filt Rate > 60.0 mL/min (>60); Globulin 4.7 g/dL (1.7-4.1); Glucose 120 mg/dL (80-110); HEMOLYSIS < 15 (0-50); Potassium 4.5 mmol/L (3.4-5.1); Sodium 141 mmol/L (137-145); Total Protein 8.7 g/dL (6.3-8.2)
[2020-08-07 10:24] LABS: C-Reactive Protein Quant 19.1 mg/dL (<1.0)
[2020-08-07 10:32] LABS: Appearance Urine UA CLEAR; Bilirubin Urine UA NEGATIVE (NEGATIVE); Color Urine UA YELLOW; Glucose Urine UA NEGATIVE (Negative); Ketones Urine UA NEGATIVE (NEGATIVE); Leukocyte Esterase Urine UA NEGATIVE (NEGATIVE); Nitrite Urine UA NEGATIVE (Negative); Occult Blood Urine UA NEGATIVE (Negative); Protein Urine UA TRACE (Negative); Specific Gravity Urine UA 1.015 (1.000-1.035); Urobilinogen Urine UA 0.2 E.U./dL (0.2)
[2020-08-07 10:38] LABS: Culture Indicated Urine Cult Not Indicated; Mucus Urine 3+ (Negative)
[2020-08-07 17:41] LABS: COVID19 -Nasal RAPID Negative (Negative)
[2020-08-07 17:55] LABS: Adenovirus Not Detected (Not Detect); Bordetella pertussis Not Detected (Not Detect); Chlamydophila pneumoniae Not Detected (Not Detect); Coronavirus 229E Not Detected (Not Detect); Coronavirus HKU1 Not Detected (Not Detect); Coronavirus NL 63 Not Detected (Not Detect); Coronavirus OC43 Not Detected (Not Detect); Human Metapneumovirus Not Detected (Not Detect); Human Rhinovirus/Enterovirus Not Detected (Not Detect); Influenza A Not Detected (Not Detect); Influenza B Not Detected (Not Detect); Mycoplasma pneumoniae Not Detected (Not Detect); Parainfluenza Virus 1 Not Detected (Not Detect); Parainfluenza Virus 2 Not Detected (Not Detect); Parainfluenza Virus 3 Not Detected (Not Detect); Parainfluenza Virus 4 Not Detected (Not Detect); Respiratory Syncytial Virus Not Detected (Not Detect)
== END ==
PROVIDERS: PCP Family Medicine; Referring Provider Physician Assistant; Visit Provider Physician Assistant
DX: R05 Cough (principal); R30.0 Dysuria; R35.0 Frequency of micturition
CPT/HCPCS: 36415; 71046; 80053; 81001; 85025; 86140; 87086; 87633; 87635

== ENCOUNTER → 2020-08-22 14:53 | Outpatient (CLI) | payer MEDICARE, OTHER, SELFPAY ==
[2020-08-22 16:09] LABS: Add Manual Diff / Slide Review NO; Basophils Absolute Auto 0 /uL (0-100); Basophils Percent Auto 0.3 % (0-2); Eosinophils Absolute Auto 0 /uL (0-450); Eosinophils Percent Auto 0.1 % (2-4); Hematocrit 33.8 % (41-53); Hemoglobin 10.9 g/dL (13.5-17.5); Lymphocytes Absolute Auto 1700 /uL (1100-4500); Lymphocytes Percent Auto 10.2 % (25-40); Mean Corpuscular HGB Conc 32.2 % (30-36); Mean Corpuscular Hemoglobin 27.1 PG (26-34); Mean Corpuscular Volume 84.2 fL (80-100); Monocytes Absolute Auto 1800 /uL (0-900); Monocytes Percent Auto 10.6 % (3-14); Neutrophils Absolute Auto 13300 /uL (1500-7000); Neutrophils Percent Auto 78.8 % (50-75); Platelet Count 529 X10^3/uL (150-400); Red Blood Cell Count 4.01 X10^6/uL (4.5-5.9); Red Cell Distribution Width 13.7 % (11.6-14.8); White Blood Cell Count 16.9 X10^3/uL (4.5-11.0)
[2020-08-22 16:33] LABS: Alanine Aminotransferase 188 IU/L (<50); Albumin 3.5 g/dL (3.5-5.0); Albumin Globulin Ratio 0.7 (1.0-2.8); Alkaline Phosphatase 253 U/L (38-126); Aspartate Aminotransferase 134 IU/L (17-59); BUN Creatinine Ratio 30.1 (6-22); Bilirubin Total 0.6 mg/dL (0.2-1.3); Blood Urea Nitrogen 22 mg/dL (9-20); Calcium 9.3 mg/dL (8.4-10.2); Carbon Dioxide 29 mmol/L (22-32); Chloride 101 mmol/L (98-107); Estimated Glomerular Filt Rate > 60.0 mL/min (>60); Globulin 4.7 g/dL (1.7-4.1); Glucose 98 mg/dL (80-110); Sodium 136 mmol/L (137-145); Total Protein 8.2 g/dL (6.3-8.2)
[2020-08-22 16:46] LABS: HEMOLYSIS 54 (0-50)
[2020-08-22 16:47] LABS: Potassium 4.7 mmol/L (3.4-5.1)
[2020-08-22 17:23] LABS: C-Reactive Protein Quant 37.9 mg/dL (<1.0)
[2020-08-22 18:41] LABS: Ferritin 1590 ng/mL (18-464)
== END ==
PROVIDERS: PCP Family Medicine; Referring Provider Family Medicine; Visit Provider Family Medicine
DX: R05 Cough (principal); J18.9 Pneumonia, unspecified organism
CPT/HCPCS: 36415; 80053; 82728; 85025; 86140

== ENCOUNTER → 2020-08-23 14:17 | Outpatient (CLI) | payer MEDICARE, OTHER, SELFPAY ==
--- NOTE | 2020-08-23 14:21 | DI.CT.S_ITS ---
PROCEDURE: CT CHEST ABD PEL W CON INDICATIONS: Cough, fatigue TECHNIQUE: After the administration of oral and intravenous contrast, 5 mm thick sections acquired from the lung apices to the symphysis. 5 mm coronal and sagittal reformats were performed, with additional 7 mm coronal MIP reformats through the lungs. For radiation dose reduction, the following was used: automated exposure control, adjustment of mA and/or kV according to patient size. COMPARISON: [facility], CR, XR CHEST 2V, 08/07/2020, 9:01. [facility], CR, XR CHEST 2V, 07/30/2020, 15:52. FINDINGS: Image quality: Excellent. CHEST: Lungs and pleura: No acute airspace opacities are found that would suggest presence of pneumonia. Rather, at the left lung base in the area of prior persistent opacification suspicious for representing pneumonia there is a mass lesion which measures up to 4.2 cm AP, 4.8 cm transverse and 3.9 cm craniocaudad. This is located anatomic Lianet within the left lower lobe abutting the inferior aspect of the major fissure but does appear to penetrate through the major fissure to the posterior border of the lingular segment left upper lobe.. No pleural effusions or pneumothorax. Central and peripheral airways appear patent and normal in caliber. Mediastinum: Heart size is normal. No pericardial effusion. No upper mediastinal or hilar adenopathy by size criteria but within the subcarinal space of the middle mediastinum extending contiguously into the posterior mediastinum there is a large deshawn mass, displacing the esophagus rightward measuring up to 6.4 cm AP, 7.6 cm transverse and 8.1 cm craniocaudad. There is also a right paratracheal enlarged node within the upper mediastinum measuring 2.6 cm in maximal dimension. A slight degree of precarinal adenopathy also can be seen. Thoracic aorta and central pulmonary arteries are normal in size. Esophagus is normal in caliber. No hiatal hernia. Chest wall: No axillary or supraclavicular adenopathy by size criteria. Thyroid gland appears normal. ABDOMEN: Solid organs: Liver is normal in size and enhancement. Gallbladder contains several large peripherally calcified gallstones without acute inflammation or adjacent biliary. Biliary system is non dilated. Pancreas enhances normally. Spleen is normal in size and enhancement. No adrenal nodules. Kidneys demonstrate normal size and enhancement, without hydronephrosis. Peritoneum and bowel: Bowel loops demonstrate normal wall thickness and caliber. No free fluid or air. Nodes and vessels: No retroperitoneal or mesenteric adenopathy by size criteria. Aorta and inferior vena cava are normal in size. Miscellaneous: No ventral hernias. PELVIS: Genitourinary: Bladder wall thickness is normal. Miscellaneous: No inguinal hernias or adenopathy. Bones: No suspicious bony lesions. No vertebral body compression fractures. IMPRESSION: There is a left lower lung mass, involving the interface between the left upper lobe lingular segment and the anterior border of the left lower lobe. Associated adenopathy is seen within the mediastinum, most prominently within the subcarinal space but also to a small degree in the precarin obstruction. al and right paratracheal spaces. Moderately large peripherally calcified gallstones are incidentally noted within the gallbladder lumen but there is no sign of acute cholecystitis or biliary obstruction. Note: The findings were called to the ordering healthcare providers office. The provider is not available today and will receive the report on Wednesday. Dictated by: Mk Lauren M.D. on 08/23/2020 at 15:49 Approved by: Mk Lauren M.D. on 08/23/2020 at 16:03
== END ==
PROVIDERS: PCP Family Medicine; Referring Provider Family Medicine; Visit Provider Family Medicine
DX: J18.9 Pneumonia, unspecified organism (principal); R91.8 Other nonspecific abnormal finding of lung field; K80.20 Calculus of gallbladder without cholecystitis without obstruction; R05 Cough; D50.9 Iron deficiency anemia, unspecified; R53.83 Other fatigue
CPT/HCPCS: 71260; 74177

== ENCOUNTER → 2020-08-29 15:23 | Outpatient (CLI) | payer MEDICARE, OTHER, SELFPAY ==
[2020-08-29 15:41] LABS: Bacteria Urine None Seen
[2020-08-29 17:38] LABS: Appearance Urine UA CLEAR; Bilirubin Urine UA NEGATIVE (NEGATIVE); Color Urine UA YELLOW; Glucose Urine UA NEGATIVE (Negative); Ketones Urine UA NEGATIVE (NEGATIVE); Leukocyte Esterase Urine UA NEGATIVE (NEGATIVE); Nitrite Urine UA NEGATIVE (Negative); Occult Blood Urine UA TRACE-INTACT (Negative); Protein Urine UA NEGATIVE (Negative); pH Urine UA 6.5 (4.5-8.0)
[2020-08-29 17:45] LABS: Culture Indicated Urine Cult Not Indicated; RBC Urine 0-1/HPF (0-5/HPF); WBC Urine 0-1/HPF (0-5/HPF)
== END ==
PROVIDERS: PCP Family Medicine; Referring Provider Family Medicine; Visit Provider Family Medicine
DX: R30.0 Dysuria (principal); R35.0 Frequency of micturition; R39.15 Urgency of urination
CPT/HCPCS: 36415; 81001

== ENCOUNTER → 2020-09-02 09:20 | Oncology outpatient (ONC) | payer MEDICARE, OTHER, SELFPAY ==
--- NOTE | 2020-09-02 10:06 | ONC.CONS ---
History of Present Illness - Data of Consult Patient: known to practice within the last 3 years (wangj) Consult date: 09/02/20 Requesting Physician: Daniel Rivas DO Primary Care Provider: Daniel Rivas DO - Consult Narrative Reason for consult: Lower lung mass Narrative: Kal Grimm is a 74 year old male. He had Afib and underwent ablation at [facility] about 09/2016. Dr Soto did EKG and patient was told it was fine. He is now taking ASA 81 mg daily, but not other blood thinners. About 8 weeks ago, he developed cough, crazy night sweats, hot to cold all night and all day long. But he denies any fever. He said he also belches a lo and feels like air trapped in the chest. He denies hemoptysis. He is having constant headache. all over the head, mild to moderate. She has lenses put in the eyes and has had double vision. without glasses. He has to force himself to focus. No nausea and no vomiting. His abdomen feels tight and cold. He lost about 10-12 lb over past 1-2 months. Before COVID pandemic, he was able to walk 5-6 miles twice a week. Now, he said he feels hard to walk. [facility]. Chest x-ray was concerning for bilateral pneumonia. He was prescribed levaquin. COVID-19 testing was negative. He completed 2 weeks antibiotics and did not have any improvement of his cough symptoms. The patient was seen by daniel Frey. To evaluate others etiology, a CT chest, abdomen and pelvis. The scan showed a left lower lung mass involving the interface between the left upper lobe, insunlar segment and segment and anterior border of the left lower lobe. The CT CAP showed a left lower lung mass, involving the interface between the left upper lobe lingular segment and the anterior border the left lower, associated adenopathy noted within the mediastinum, most prominently within the subcarinal space. Moderately large peripherally calcified gall stones were incidentally noted within the gallbladder lumen. CC: Dante Cardenas MD Home Medications and Allergies Home Medications Medication Instructions Recorded Confirmed Type aspirin 81 mg PO DAILY 11/04/18 09/02/20 History ResMed AirSense 10 CPAP #1 ea 01/27/19 09/02/20 History pravastatin 40 mg tablet 20 mg PO BEDTIME #45 tab 06/24/20 09/02/20 Rx albuterol sulfate 90 mcg/actuation 2 puff INHALATION Q4H PRN #6.7 gram 08/22/20 09/02/20 Rx aerosol inhaler tamsulosin 0.4 mg capsule 0.4 mg PO BEDTIME #30 cap 08/30/20 09/02/20 Rx Allergies Allergy/AdvReac Type Severity Reaction Status Date / Time codeine [CODEINE] Allergy Intermediate MIGRAINE Verified 06/11/20 13:40 ezetimibe [From Zetia] AdvReac Intermediate Abdominal Verified 06/14/20 07:52 Pain Medical History - Medical, Surgical, Family History Medical History: Medical History (Last Reviewed 09/02/20 @ 10:41 by Dante Cardenas MD) History of atrial fibrillation History of cataract History of hearing loss Mixed hyperlipidemia Onset Date: 11/30/16 Obstructive sleep apnea of adult Surgical History: Surgical History (Last Updated 09/02/20 @ 10:41 by Dante Cardenas MD) H/O right knee surgery History of cardiac radiofrequency ablation (RFA) History of cardiac radiofrequency ablation (RFA) Status post knee surgery Family History: Family History (Last Reviewed 08/22/20 @ 16:55 by Daniel Rivas DO) Family/Other No problems noted. - Social History Smoking Status: Never smoker Substance Use Type: does not use Alcohol Intake: never Review of Systems All systems PM: reviewed and no additional remarkable complaints except as stated Exam Vital signs: 09/04/20 23:18 Last Vital Signs Temp 97.2 F L 09/02/20 10:13 Pulse 80 09/02/20 10:13 Resp 18 09/02/20 10:13 BP 130/67 09/02/20 10:13 Pulse Ox 98 09/02/20 10:13 - Constitutional positive mild distress, negative agitated, positive somnolent, negative obtunded - Routine HEENT Exam Head: Present: normocephalic, atraumatic, cushingoid faces. Absent: abrasion, laceration Eye: Present: EOMI, PERRL, normal accommodation. Absent: conjunctival icterus, scleral injection ENT: Present: mucous membranes moist - Routine Neck Exam Present: supple. Absent: lymphadenopathy, thyromegaly - Routine Respiratory Exam Present: Clear to auscultation bilaterally. Absent: wheezes - Routine Cardiovascular Exam Present: RRR, S1, S2. Absent: murmur, gallop, rubs - Routine Abdominal Exam Present: soft. Absent: tenderness, distended, rebound, organomegaly - Routine Extremities Exam Present: cyanosis - Routine Skin Exam Present: intact - Routine Neurological Exam Present: alert, oriented X3, CN II-XII intact. Absent: sensory deficit, motor deficit Results - Labs Reviewed. Assessment and Plan (1) Mass of lower lobe of left lung Overview: Kal Olivares is a 74-year-old gentleman without any history of smoking. He presents with cough, weight loss, and night sweats in July 2020 and workup showed left lower lung mass as well as mediastinal mass. Assessment: I talked with the patient and showed the patient the CT scans of the chest. 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 The first important is to obtain tissue diagnosis. Patient has already scheduled to see a vice president consulting services at [facility] for possible evaluation of bronchoscopy and biopsy. In addition to complete the staging, I will obtain brain MRI as well as PET scan. I talked with the patient that I will see the patient in about 2 weeks to follow-up on the results. Hopefully the pathology will be available for review. Given the available information, I talked with him he most likely has a stage III lung cancer. The treatment options usually would include concurrent chemo radiotherapy followed by immunotherapy. As far as radiation therapy is concerned, I talked with them that the closest facility is in [facility]. Patient clearly is leaning towards [facility]. Patient voiced understanding. Plan: MR brain wo/w contrast PET scan Pulmonary visit as scheduled RTC in 2 weeks
[2020-09-02 10:13] VITALS: BP 130/67; PULSE 80; RESP 18; TEMP 36.2; O2SAT 98
--- NOTE | 2020-09-23 14:18 | ONC.MSW ---
Description: Email Communication Please see below the email communication from pt's dtr, and BUSINESS INTELLIGENCE ENGINEER response regarding treatment care planning: Vahid Mixon, yes, I just found out, I?m so sorry to hear this! Yes, I am still going to help you with all navigation once he?s discharged from [facility]. Talking to the nurse navigator before he is d/c?d would be great, please provide my phone number . I did send in your dad?s referral to [facility] , so please call them to update them re: his admission, and they will set-up his admission date for just after discharge from [facility]. Home Health can order your medical equipment for delivery, but the nurse navigator there should be able to get things ordered for you prior to his d/c home. Medicare will approve Home Health, but not for hiring in-home caregivers, which is what you will need (as well as Home Health, they only come and go). Medicare will not pay for that, it will need to be paid for privately, unless they have a long-term care insurance plan that covers this. If it?s unaffordable, we could explore what your parents gross income/assets are, they may qualify for Medicaid, which does have a state program called ABDIEL, which is in-home caregivers, the only problem-the state could put a lean on their home to recuperate their money for the care later. Hope this helps! I had given your list of questions to Dr. Cardenas to go over with today, but I?m so glad he is in the hospital and will get his urgent care needs met. Hang in there, please contact me anytime. Thanks! Lu From: Wendi Maguire [[email or web address]] Sent: Wednesday, September 23, 2020 1:55 PM To: Lu Cyr Subject: [EXTERNAL] Re: 3 questions re Kal Grimm STOP. THINK. READ. This message originated outside of [facility]. Vahid Leigh, I hope you have been made aware of our new development and i'm not sure what the protocol is now. If you have not been informed, i will give you the angelica notes my dad went to the ED on [place] morning.? After 8 hours there, he was transferred to [facility] ICU by ambulance where he is undergoing evaluation for interventional pulmonology.?? so NOW my question is are you still a resource we can lean on for navigation of care going forward or can you network us with a nurse navigator at [facility]?? To expedite the communication, my questions now are 1.? is there a hospitality opportunity we can explore in [place] for my mom so that she is not driving home (over an hour) in the dark after visiting hours every day? 2. what kind of protocol do we need to follow to request medical equipment in our house like a toilet seat elevator, a hospital bed, etc?? we may not get to this point - but i just want to be able to hit the ground running if we do. 3.? Do we need to take any steps right now regarding an in home nurse?? i can't remember what we discussed on the phone after you sent me the list...if you were going to start the process of getting medicare to approve that ? thank you wendi
--- NOTE | 2020-09-23 18:10 | ONC.PN ---
PN -Subjective Interval history: dauther and came today, and patient was not able as he was transferred to [facility]. - Additional ROS All systems PM: reviewed and no additional remarkable complaints except as stated Home Medications and Allergies Home Medications Medication Instructions Recorded Confirmed Type aspirin 81 mg PO DAILY 11/04/18 09/02/20 History ResMed AirSense 10 CPAP #1 ea 01/27/19 09/02/20 History pravastatin 40 mg tablet 20 mg PO BEDTIME #45 tab 06/24/20 09/02/20 Rx albuterol sulfate 90 mcg/actuation 2 puff INHALATION Q4H PRN #6.7 gram 08/22/20 09/02/20 Rx aerosol inhaler baclofen 10 mg tablet 5 mg PO BID PRN #30 tab 09/17/20 09/17/20 Rx benzonatate 100 mg capsule 100 mg PO BID-TID PRN #60 cap 09/17/20 09/17/20 Rx furosemide 20 mg tablet 10 mg PO BID #14 tab 09/17/20 09/17/20 Rx ondansetron HCl 4 mg tablet 4 mg PO Q6H PRN #30 tab 09/17/20 09/17/20 Rx tamsulosin 0.4 mg capsule 0.4 mg PO BEDTIME #90 cap 09/17/20 09/17/20 Rx trazodone 50 mg tablet 25 mg PO BEDTIME PRN #30 tab 09/17/20 09/17/20 Rx Allergies Allergy/AdvReac Type Severity Reaction Status Date / Time codeine [CODEINE] Allergy Intermediate MIGRAINE Verified 09/22/20 09:09 ezetimibe [From Zetia] AdvReac Intermediate Abdominal Verified 09/22/20 09:09 Pain Assessment and Plan (1) Mass of lower lobe of left lung Overview: Kal Olivares is a 74-year-old gentleman without any history of smoking. He presents with cough, weight loss, and night sweats in July 2020 and workup showed left lower lung mass as well as mediastinal mass. Assessment: I talked with the patient and showed the patient the CT scans of the chest. 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 The first important is to obtain tissue diagnosis. Patient has already scheduled to see a grill prep cook at [facility] for possible evaluation of bronchoscopy and biopsy. In addition to complete the staging, I will obtain brain MRI as well as PET scan. I talked with the patient that I will see the patient in about 2 weeks to follow-up on the results. Hopefully the pathology will be available for review. Given the available information, I talked with him he most likely has a stage III lung cancer. The treatment options usually would include concurrent chemo radiotherapy followed by immunotherapy. As far as radiation therapy is concerned, I talked with them that the [facility] facility is [facility]. Patient clearly is leaning towards [facility]. Patient voiced understanding. Plan: MR brain wo/w contrast PET scan Pulmonary visit as scheduled RTC in 2 weeks call for follow up visit.
--- NOTE | 2020-10-02 10:20 | ONC.MSW ---
*Sent bereavement card.
== END ==
PROVIDERS: PCP Family Medicine; Referring Provider Family Medicine; Visit Provider Internal Medicine Hematology & Oncology
DX: R91.8 Other nonspecific abnormal finding of lung field (principal); J98.59 Other diseases of mediastinum, not elsewhere classified; R05 Cough; R63.4 Abnormal weight loss; R61 Generalized hyperhidrosis; E78.2 Mixed hyperlipidemia; G47.33 Obstructive sleep apnea (adult) (pediatric); Z79.82 Long term (current) use of aspirin
CPT/HCPCS: 99203; 99213

== ENCOUNTER 2020-09-11 20:49 | Emergency (ER) | payer MEDICARE, OTHER, SELFPAY ==
[2020-09-11 20:55] VITALS: BP 116/66; PULSE 99; RESP 22; TEMP 36.2; O2SAT 99
--- NOTE | 2020-09-11 20:57 | DI.RAD.S_ITS ---
PROCEDURE: XR CHEST 2V INDICATIONS: shortness of breath TECHNIQUE: 2 views of the chest were acquired. COMPARISON: [facility], CT, CT CHEST ABD PEL W CON, 08/23/2020, 15:13. [facility], CR, XR CHEST 2V, 08/07/2020, 9:01. FINDINGS: Surgical changes and devices: None. Lungs and pleura: Diffuse interstitial prominence. Patchy bibasilar opacities more pronounced on the left with left lower lobe consolidation. Small bilateral pleural effusions. No pneumothorax. Mediastinum: Mediastinal contours are stable with inferior mediastinal density likely representing inferior mediastinum adenopathy seen on comparison CT. Heart size is normal. Bones and chest wall: No suspicious bony abnormalities. Soft tissues appear unremarkable. IMPRESSION: 1. Diffuse interstitial prominence which may represent an infectious/inflammatory process. Pulmonary edema may have a similar appearance. 2. Left basilar consolidation compatible with mass seen on recent CT. 3. Streaky bibasilar opacities favored to represent atelectasis. 4. Prominent inferior mediastinal density favored to represent adenopathy seen on comparison CT. Dictated by: Jesus Bowles M.D. on 09/11/2020 at 21:43 Approved by: Jesus Bowles M.D. on 09/11/2020 at 21:47
[2020-09-11 21:10] LABS: Add Manual Diff / Slide Review NO; Basophils Absolute Auto 100 /uL (0-100); Basophils Percent Auto 0.5 % (0-2); Eosinophils Absolute Auto 0 /uL (0-450); Eosinophils Percent Auto 0.1 % (2-4); Hematocrit 34.5 % (41-53); Hemoglobin 10.9 g/dL (13.5-17.5); Lymphocytes Absolute Auto 1600 /uL (1100-4500); Lymphocytes Percent Auto 6.9 % (25-40); Mean Corpuscular HGB Conc 31.6 % (30-36); Mean Corpuscular Hemoglobin 25.1 PG (26-34); Mean Corpuscular Volume 79.5 fL (80-100); Monocytes Absolute Auto 1200 /uL (0-900); Monocytes Percent Auto 5.3 % (3-14); Neutrophils Absolute Auto 20500 /uL (1500-7000); Neutrophils Percent Auto 87.2 % (50-75); Platelet Count 702 X10^3/uL (150-400); Red Blood Cell Count 4.34 X10^6/uL (4.5-5.9); Red Cell Distribution Width 16.1 % (11.6-14.8); White Blood Cell Count 23.4 X10^3/uL (4.5-11.0)
[2020-09-11 21:19] LABS: Lactate (Lactic Acid) 2.2 mmol/L (0.7-2.1)
[2020-09-11 21:20] LABS: Alanine Aminotransferase 125 IU/L (<50); Albumin 3.2 g/dL (3.5-5.0); Albumin Globulin Ratio 0.7 (1.0-2.8); Alkaline Phosphatase 337 U/L (38-126); Aspartate Aminotransferase 82 IU/L (17-59); BUN Creatinine Ratio 36.4 (6-22); Blood Urea Nitrogen 24 mg/dL (9-20); Carbon Dioxide 32 mmol/L (22-32); Chloride 94 mmol/L (98-107); Estimated Glomerular Filt Rate > 60.0 mL/min (>60); Globulin 4.8 g/dL (1.7-4.1); Glucose 126 mg/dL (80-110); HEMOLYSIS < 15 (0-50); Sodium 130 mmol/L (137-145)
--- NOTE | 2020-09-11 21:53 | ED.GENADULT ---
HPI - General Adult General Chief complaint: Shortness of Breath/Dyspnea Stated complaint: mass in lungs, difficulty breathing Time Seen by Provider: 09/11/20 21:03 Source: patient Mode of arrival: Ambulatory Limitations: no limitations History of Present Illness HPI narrative: 74-year-old male with a recent fairly complicated pulmonary history. Has a known left-sided lung mass that is concerning for small cell lung cancer. Had a PET scan performed earlier today. Has an MRI scheduled for tomorrow and is scheduled to see a circle beveler for a bronchoscopy and biopsy in 1 week from now. Comes to the emergency department this evening for continued symptoms. He reports that his symptoms have really worsened but they have continued despite treatment up to this point. He states that he is having a hard time sleeping at night. Has been coughing. Has not had any fevers. Does have some problems catching his breath. Has been on a course of Levaquin when his pulmonary symptoms started that was several weeks ago. Saw his primary doctor and and 1 point had a prescription for doxycycline for potential atypical pneumonia but he has not taken this after he reports was further discussions with his primary doctor and oncologist. He reports that his symptoms today are not necessarily worsening of just continued and he is asking for help with cough and also help sleeping at night. He reports that he is very concerned about doing anything that would prohibit the biopsy that is scheduled next week. Related Data Home Medications Medication Instructions Recorded Confirmed aspirin 81 mg PO DAILY 11/04/18 09/02/20 ResMed AirSense 10 CPAP #1 ea 01/27/19 09/02/20 Previous Rx's Medication Instructions Recorded pravastatin 40 mg tablet 20 mg PO BEDTIME #45 tab 06/24/20 albuterol sulfate 90 mcg/actuation 2 puff INHALATION Q4H PRN #6.7 gram 08/22/20 aerosol inhaler tamsulosin 0.4 mg capsule 0.4 mg PO BEDTIME #90 cap 09/09/20 benzonatate [Tessalon Perles] 100 mg PO BID-TID PRN #20 cap 09/11/20 doxycycline hyclate 100 mg PO BID 7 Days #14 cap 09/11/20 ondansetron HCl [Zofran] 4 mg PO Q6H PRN #10 tab 09/11/20 trazodone 25 mg PO BEDTIME PRN #7 tab 09/11/20 Allergies Allergy/AdvReac Type Severity Reaction Status Date / Time codeine [CODEINE] Allergy Intermediate MIGRAINE Verified 06/11/20 13:40 ezetimibe [From Zetia] AdvReac Intermediate Abdominal Verified 06/14/20 07:52 Pain Review of Systems Constitutional Constitutional: Denies fever(s), Denies headache(s) and Reports weakness Eyes Eyes: Denies change in vision ENT Ears, Nose, Mouth, and Throat: Denies vertigo, Denies headache(s) and Denies sore throat Cardiovascular Cardiovascular: Denies chest pain and Reports dyspnea Respiratory Respiratory: Reports cough, Denies hemoptysis and Reports dyspnea Gastrointestinal Gastrointestinal: Denies abdominal pain, Reports nausea and Denies vomiting Genitourinary Genitourinary: Denies dysuria Genitourinary: Denies dysuria Musculoskeletal Musculoskeletal: Denies arthralgias and Denies myalgias Integumentary/Breasts Skin/Breast: Denies rash Neurologic Neurologic: Denies confusion, Denies vertigo, Denies headache(s) and Reports weakness Psychiatric Psychiatric: Denies confusion Hematologic/Lymphatic Hematologic/Lymphatic: Denies easy bleeding and Denies easy bruising Allergic/Immunologic Allergic/Immunologic: Denies urticaria Patient History Medical History History of atrial fibrillation (Resolved) History of cataract (Chronic) History of hearing loss (Chronic) Mixed hyperlipidemia (Chronic 11/30/16) Obstructive sleep apnea of adult (Chronic) Surgical History (Updated 09/02/20 @ 10:53 by Dnate Cardenas MD) H/O right knee surgery (Acute) History of cardiac radiofrequency ablation (RFA) History of cardiac radiofrequency ablation (RFA) Status post knee surgery Family History Family/Other No problems noted. Social History marital status: number of children: 4 household members: spouse lives independently: Yes caregiver/support person: No housing: house education level: college occupational status: previously employed Previous occupational history: project management engineer Smoking Status: Never smoker alcohol intake: never substance use type: does not use caffeine: Yes Type(s) of exercise: regular exercise and running frequency: 5-6 times per week duration: 45-60 minutes/day Smoking Status: Never smoker Exam Initial Vital Signs Initial Vital Signs: Vital Signs Temperature 97.1 F L 09/11/20 20:55 Pulse Rate 99 H 09/11/20 20:55 Respiratory Rate 22 09/11/20 20:55 Blood Pressure 116/66 09/11/20 20:55 Pulse Oximetry 99 09/11/20 20:55 Const General: cooperative and comfortable Limitations: mental status not altered HENMT Head: normal to inspection and normocephalic Resp Effort & Inspection: tachypneic Auscultation: clear to auscultation bilaterally Cardio Rate: regular rate Rhythm: regular rhythm GI Inspection: non-distended Palpation: soft Skin Lesions: no lesions Rashes: no rashes Neuro General: patient alert, patient awake and patient oriented x3 Cognition: normal cognition Speech: speech normal Extrem General: capillary refill normal and No edema Psych Appearance: grossly normal and well kempt Scores GCS Joshua coma scale eye opening: Spontaneous [place] coma scale verbal response: Orientated [place] coma scale motor response: Obey commands Joshua coma scale total score: 15 Course Orders Ordered: ED Orders 09/11/20 20:57 XR chest 2V Stat EKG-12 Lead Stat Measure peak expiratory flow ONCE RT Consult Eval and Treat Now 09/11/20 21:00 Complete Blood Count AUTO DIFF Stat Comprehensive Metabolic Panel Stat Lactate (Lactic Acid) Stat NT-proBNP (BNP-Adult 18+) Stat Procalcitonin Stat Troponin & CK Cardiac Panel Stat Vital Signs Vital signs: Vital Signs - 8 hr 09/11/20 20:55 09/11/20 22:22 09/11/20 23:53 Temperature 97.1 F L Pulse Rate 99 H 91 H 88 Respiratory Rate 22 18 18 Blood Pressure 116/66 103/58 L 116/58 L Pulse Oximetry 99 95 98 Medical Decision Making Lab Data Lab results reviewed: Yes I reviewed the patient's lab results. Result diagrams: 09/11/20 21:00 09/11/20 21:00 Labs: Lab Results 09/11/20 09/11/20 09/11/20 Range/Units 21:00 21:00 21:00 WBC 23.4 H (4.5-11.0) X10^3/uL RBC 4.34 L (4.5-5.9) X10^6/uL Hgb 10.9 L (13.5-17.5) g/dL Hct 34.5 L (41-53) % MCV 79.5 L (80-100) fL MCH 25.1 L (26-34) PG MCHC 31.6 (30-36) % RDW 16.1 H (11.6-14.8) % Plt Count 702 H (150-400) X10^3/uL Neut % (Auto) 87.2 H (50-75) % Lymph % (Auto) 6.9 L (25-40) % Bartholomew % (Auto) 5.3 (3-14) % Eos % (Auto) 0.1 L (2-4) % Baso % (Auto) 0.5 (0-2) % Neut # (Auto) 05864 H (7699-9448) /uL Lymph # (Auto) 1600 (3968-2399) /uL Bartholomew # (Auto) 1200 H (0-900) /uL Eos # (Auto) 0 (0-450) /uL Baso # (Auto) 100 (0-100) /uL Sodium 130 L (137-145) mmol/L Potassium 4.0 (3.4-5.1) mmol/L Chloride 94 L (98-107) mmol/L Carbon Dioxide 32 (22-32) mmol/L BUN 24 H (9-20) mg/dL Creatinine 0.66 (0.66-1.25) mg/dL Estimated GFR > 60.0 (>60) mL/min BUN/Creatinine Ratio 36.4 H (6-22) Glucose 126 H (80-110) mg/dL Lactate 2.2 H (0.7-2.1) mmol/L Calcium 9.0 (8.4-10.2) mg/dL Total Bilirubin 1.0 (0.2-1.3) mg/dL AST 82 H (17-59) IU/L ALT 125 H (<50) IU/L Alkaline Phosphatase 337 H (38-126) U/L Total Creatine Kinase (55-170) U/L CK-MB (CK-2) CK-MB (CK-2) Rel Index Troponin I (0.01-0.034) ng/mL NT-Pro-B Natriuret Pep (<125) pg/mL Total Protein 8.0 (6.3-8.2) g/dL Albumin 3.2 L (3.5-5.0) g/dL Globulin 4.8 H (1.7-4.1) g/dL Albumin/Globulin Ratio 0.7 L (1.0-2.8) Procalcitonin (<0.5) ng/mL 09/11/20 09/11/20 Range/Units 21:00 21:00 WBC (4.5-11.0) X10^3/uL RBC (4.5-5.9) X10^6/uL Hgb (13.5-17.5) g/dL Hct (41-53) % MCV (80-100) fL MCH (26-34) PG MCHC (30-36) % RDW (11.6-14.8) % Plt Count (150-400) X10^3/uL Neut % (Auto) (50-75) % Lymph % (Auto) (25-40) % Bartholomew % (Auto) (3-14) % Eos % (Auto) (2-4) % Baso % (Auto) (0-2) % Neut # (Auto) (6591-0913) /uL Lymph # (Auto) (1899-8695) /uL Bartholomew # (Auto) (0-900) /uL Eos # (Auto) (0-450) /uL Baso # (Auto) (0-100) /uL Sodium (137-145) mmol/L Potassium (3.4-5.1) mmol/L Chloride (98-107) mmol/L Carbon Dioxide (22-32) mmol/L BUN (9-20) mg/dL Creatinine (0.66-1.25) mg/dL Estimated GFR (>60) mL/min BUN/Creatinine Ratio (6-22) Glucose (80-110) mg/dL Lactate (0.7-2.1) mmol/L Calcium (8.4-10.2) mg/dL Total Bilirubin (0.2-1.3) mg/dL AST (17-59) IU/L ALT (<50) IU/L Alkaline Phosphatase (38-126) U/L Total Creatine Kinase 39 L (55-170) U/L CK-MB (CK-2) TNP CK-MB (CK-2) Rel Index TNP Troponin I < 0.012 (0.01-0.034) ng/mL NT-Pro-B Natriuret Pep 1470 H (<125) pg/mL Total Protein (6.3-8.2) g/dL Albumin (3.5-5.0) g/dL Globulin (1.7-4.1) g/dL Albumin/Globulin Ratio (1.0-2.8) Procalcitonin 1.33 H (<0.5) ng/mL Imaging Data Chest x-ray: Radiologist's Impression: [address] [address] XRay Report Signed Patient: Kal Grimm FMR#: [id number] : 7Acct:[id number] Age/Sex: 74 / MDate of Service: 09/11/20 Loc: ED Accession Number: [id number] Procedure: XR chest 2V Ordering Provider: Damien Perez D.O. PROCEDURE: XR CHEST 2V INDICATIONS: shortness of breath TECHNIQUE: 2 views of the chest were acquired. COMPARISON: [facility], CT, CT CHEST ABD PEL W CON, 08/23/2020, 15:13. [facility], CR, XR CHEST 2V, 08/07/2020, 9:01. FINDINGS: Surgical changes and devices: None. Lungs and pleura: Diffuse interstitial prominence. Patchy bibasilar opacities more pronounced on the left with left lower lobe consolidation. Small bilateral pleural effusions. No pneumothorax. Mediastinum: Mediastinal contours are stable with inferior mediastinal density likely representing inferior mediastinum adenopathy seen on comparison CT. Heart size is normal. Bones and chest wall: No suspicious bony abnormalities. Soft tissues appear unremarkable. IMPRESSION: 1. Diffuse interstitial prominence which may represent an infectious/inflammatory process. Pulmonary edema may have a similar appearance. 2. Left basilar consolidation compatible with mass seen on recent CT. 3. Streaky bibasilar opacities favored to represent atelectasis. 4. Prominent inferior mediastinal density favored to represent adenopathy seen on comparison CT. Dictated by: Jesus Bowles M.D. on 09/11/2020 at 21:43 Approved by: Jesus Bowles M.D. on 09/11/2020 at 21:47 ECG Data Attestation: I personally reviewed and interpreted this ECG as follows: Prior ECG tracings: not available for review Interpretation: Sinus rhythm Ventricular rate 95 Normal axis Normal QRS Nonspecific ST T wave changes MDM Narrative Medical decision making narrative: Per his own admission he reports emergency department today without new symptoms just continued symptoms and problems with sleeping and coughing. He denies any fevers and has not had a productive cough. His chest x-ray today is concerning for had a infection/inflammation. He does have a leukocytosis with a left shift and also an elevated procalcitonin. These would point towards a potential infection however he is afebrile and has a clear lung exam. Did discuss the case with Dr. Cardenas his oncologist who states that his leukocytosis could potentially be a leukemoid reaction secondary to his lung cancer. This discussion was had prior to obtaining a procalcitonin which does have a specificity of bacterial infection if it is elevated which in his case it is. Patient is not hypoxic. I do have a strong suspicion all of his symptoms are related to his presumed lung cancer. Unfortunately I cannot move up his bronchoscopy/biopsy which is scheduled for next week. I feel that we could potentially help with some of his cough with Tesalexus Berrios however inform the patient that this would not take his cough completely way if it worked at all. Feel some trazodone at night may help him sleep. Dr. Wong stated that he did not have any issues these medications. Given his leukocytosis and elevated procalcitonin his chest x-ray findings there was some concern about a pneumonia. Has been on Levaquin in the past without any improvement and has been prescribed doxycycline in the past which she has not taken. I did inform him that taking the doxycycline would not be unreasonable however also may not help any of his symptoms. I will send him with prescription for this and he is going to contact his circle beveler tomorrow to make sure that taking medicine would not delay any issues with the bronchoscopy. Will discharge patient home was a feel that there is little more that we can and his symptoms either here in the emergency department or as an inpatient. He was given return precautions. He expressed understanding and agreement. Discharge Plan Departure Patient Disposition: Home Clinical Impression: Mass of lower lobe of left lung, Pneumonia, Cough, Insomnia Discharge Date/Time: 09/11/20 23:54 Instructions: DI for Cough -- Adult Activity Restrictions/Additional Instructions: Recommend that you take all of your medications as directed. I do recommend that tomorrow you contact your circle beveler. Also contact your primary provider for follow-up. Return to the emergency department for any new or worsening symptoms. Your prescriptions were electronically transmitted to [facility] Prescriptions: New ondansetron HCl [Zofran] 4 mg tablet 4 mg PO Q6H PRN (Reason: nausea and vomiting) Qty: 10 RF: 0 doxycycline hyclate 100 mg capsule 100 mg PO BID 7 Days Qty: 14 RF: 0 trazodone 50 mg tablet 25 mg PO BEDTIME PRN (Reason: insomnia) Qty: 7 RF: 0 benzonatate [Tessalon Perles] 100 mg capsule 100 mg PO BID-TID PRN (Reason: cough) Qty: 20 RF: 0 No Action albuterol sulfate 90 mcg/actuation HFA aerosol inhaler 2 puff INHALATION Q4H PRN (Reason: shortness of breath or wheezing) Qty: 6.7 RF: 1 pravastatin 40 mg tablet 20 mg PO BEDTIME Qty: 45 RF: 3 tamsulosin 0.4 mg capsule 0.4 mg PO BEDTIME Qty: 90 RF: 3 aspirin 81 mg Tablet,Delayed Release (Dr/Ec) 81 mg PO DAILY RF: 0 (DME) ResMed AirSense 10 CPAP Qty: 1 RF: 0 Referrals: Caryn Rivas DO [Primary Care Provider] -
[2020-09-11 22:05] LABS: Creatine Kinase 39 U/L (55-170)
[2020-09-11 22:19] LABS: NT-proBNP (BNP-Adult 18+) 1470 pg/mL (<125); Troponin I < 0.012 ng/mL (0.01-0.034)
[2020-09-11 22:22] VITALS: BP 103/58; PULSE 91; RESP 18; O2SAT 95
[2020-09-11 23:02] LABS: Procalcitonin 1.33 ng/mL (<0.5)
[2020-09-11 23:04] LABS: Reflexed Lactate in 2 Hours Y
[2020-09-11 23:53] VITALS: BP 116/58; PULSE 88; RESP 18; O2SAT 98
== END 2020-09-11 23:54 | disposition home or self-care (01) ==
PROVIDERS: Emergency Provider Emergency Medicine; PCP Family Medicine
DX: R91.8 Other nonspecific abnormal finding of lung field (principal); J18.9 Pneumonia, unspecified organism; R06.02 Shortness of breath; G47.00 Insomnia, unspecified; R05 Cough
CPT/HCPCS: 36415; 71046; 80053; 82550; 83605; 83880; 84145; 84484; 85025; 93005; 93010; 99284

== ENCOUNTER → 2020-09-12 15:39 | Outpatient (CLI) | payer MEDICARE, OTHER, SELFPAY ==
--- NOTE | 2020-09-12 15:43 | DI.MRI.S_ITS ---
PROCEDURE: MR HEAD/BRAIN WO/W CON INDICATIONS: lung cancer TECHNIQUE: Noncontrast axial T1 spin echo, axial T2 fast spin echo, sagittal and axial FLAIR, coronal T2 fast spin echo, axial gradient echo, axial diffusion and ADC through the brain. After the administration of contrast, axial and coronal T1 spin echo with fat saturation through the brain. COMPARISON: None. FINDINGS: Image quality: Excellent. CSF spaces: Basal cisterns are patent. No extra-axial fluid collections. Ventricles are normal in size and shape. Brain: No midline shift. No intracranial bleeds or masses. No abnormal intracranial enhancement. There is cerebral volume loss for age. There is periventricular white matter chronic small vessel ischemic change. The brainstem appears normal. Diffusion-weighted images demonstrate no acute ischemic insults. No chronic ischemic insults. Normal intravascular flow voids are present. Skull and face: Calvarial marrow is normal in signal. Orbits appear normal. Note is made of bilateral lens replacements. Sinuses: Sinuses and mastoids appear clear. IMPRESSION: No masses or abnormal enhancement can be seen. Note is made of age-appropriate brain parenchymal volume loss and chronic small vessel ischemic changes. No findings of acute or subacute infarction can be seen. Dictated by: Parish Norwood M.D. on 09/12/2020 at 17:12 Approved by: Parish Norwood M.D. on 09/12/2020 at 17:14
== END ==
PROVIDERS: PCP Family Medicine; Referring Provider Internal Medicine Hematology & Oncology; Visit Provider Internal Medicine Hematology & Oncology
DX: R91.8 Other nonspecific abnormal finding of lung field (principal); J98.59 Other diseases of mediastinum, not elsewhere classified
CPT/HCPCS: 70553

== ENCOUNTER 2020-09-22 08:19 | Emergency (ER) | payer MEDICARE, OTHER, SELFPAY ==
[2020-09-22] VITALS (28 sets, daily range): BP systolic 88–125; BP diastolic 50–88; PULSE 108–143; RESP 20–28; TEMP 36.3; O2SAT 91–97; BMI 24.8
--- NOTE | 2020-09-22 08:31 | ED_ITS ---
HPI - General Adult General Chief complaint: Shortness of Breath/Dyspnea Stated complaint: Really low oxygen, trending down for couple days Time Seen by Provider: 09/22/20 08:21 Source: patient and family Mode of arrival: Wheelchair Limitations: no limitations History of Present Illness HPI narrative: Patient is a 75-year-old male who I evaluated emergency department a couple weeks ago. 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 Has had a bronchoscopy with biopsy with pulmonology at [facility] in [place]. Patient and family state that they have yet to receive to the results of this. They do have an appointment with Oncology tomorrow morning to discuss this although they do not know if the results are back yet. 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 Since I have seen the patient he has had a follow-up with his primary doctor. Has had an MRI of the brain which was relatively unremarkable. Return to the emergency department today with his daughter for worsening shortness of breath over the past couple days. He has not been able to lay flat for some time now. Has had some muscle cramps and aches and pains because he is sleeping in a chair because he cannot lay flat. Has had decreased activity. No fevers. Has been taking all of his medications to include the trazodone which seems to be helping with his sleep and the Tessalon Perles which seems to have been helping with his cough somewhat. Both these were given to him during his last emergency department visit in an attempt to help some of his symptoms. Patient and family state that he has not been able to talk in complete sentences over the past couple days. Related Data Home Medications Medication Instructions Recorded Confirmed aspirin 81 mg PO DAILY 11/04/18 09/02/20 ResMed AirSense 10 CPAP #1 ea 01/27/19 09/02/20 Previous Rx's Medication Instructions Recorded pravastatin 40 mg tablet 20 mg PO BEDTIME #45 tab 06/24/20 albuterol sulfate 90 mcg/actuation 2 puff INHALATION Q4H PRN #6.7 gram 08/22/20 aerosol inhaler baclofen 10 mg tablet 5 mg PO BID PRN #30 tab 09/17/20 benzonatate 100 mg capsule 100 mg PO BID-TID PRN #60 cap 09/17/20 furosemide 20 mg tablet 10 mg PO BID #14 tab 09/17/20 ondansetron HCl 4 mg tablet 4 mg PO Q6H PRN #30 tab 09/17/20 tamsulosin 0.4 mg capsule 0.4 mg PO BEDTIME #90 cap 09/17/20 trazodone 50 mg tablet 25 mg PO BEDTIME PRN #30 tab 09/17/20 Allergies Allergy/AdvReac Type Severity Reaction Status Date / Time codeine [CODEINE] Allergy Intermediate MIGRAINE Verified 09/22/20 09:09 ezetimibe [From Zetia] AdvReac Intermediate Abdominal Verified 09/22/20 09:09 Pain Review of Systems Constitutional Constitutional: Reports fatigue, Denies fever(s), Denies lethargy and Denies weakness Eyes Eyes: Denies change in vision ENT Ears, Nose, Mouth, and Throat: Denies sore throat Cardiovascular Cardiovascular: Denies chest pain, Reports dyspnea and Reports dyspnea on exertion Respiratory Respiratory: Reports cough, Denies excessive phlegm production, Reports dyspnea and Reports dyspnea on exertion Gastrointestinal Gastrointestinal: Denies abdominal pain, Denies nausea and Denies vomiting Genitourinary Genitourinary: Denies dysuria Genitourinary: Denies dysuria Musculoskeletal Musculoskeletal: Denies arthralgias and Denies myalgias Integumentary/Breasts Skin/Breast: Reports new lesions Neurologic Neurologic: Denies behavioral changes and Denies weakness Psychiatric Psychiatric: Denies behavioral changes Endocrine Endocrine: Reports fatigue Hematologic/Lymphatic Hematologic/Lymphatic: Denies easy bleeding and Denies easy bruising Allergic/Immunologic Allergic/Immunologic: Denies urticaria Patient History Medical History History of atrial fibrillation (Resolved) History of cataract (Chronic) History of hearing loss (Chronic) Mixed hyperlipidemia (Chronic 11/30/16) Obstructive sleep apnea of adult (Chronic) Surgical History H/O right knee surgery (Acute) History of cardiac radiofrequency ablation (RFA) History of cardiac radiofrequency ablation (RFA) Status post knee surgery Family History Family/Other No problems noted. Social History marital status: number of children: 4 household members: spouse lives independently: Yes caregiver/support person: No housing: house education level: college occupational status: previously employed Previous occupational history: computer systems engineer Smoking Status: Never smoker alcohol intake: never substance use type: does not use caffeine: Yes Type(s) of exercise: regular exercise and running frequency: 5-6 times per week duration: 45-60 minutes/day Smoking Status: Never smoker Exam Initial Vital Signs Initial Vital Signs: Vital Signs Pulse Rate 109 H 09/22/20 08:26 Pulse Oximetry 91 09/22/20 08:26 Const General: cooperative and ill appearing Limitations: mental status not altered HENMT Head: normal to inspection and normocephalic Resp Effort & Inspection: cough, not labored and tachypneic Auscultation: clear to auscultation bilaterally Cardio Rate: tachycardic Rhythm: abnormal rhythm GI Inspection: non-distended Palpation: soft Skin General: petechiae Neuro General: patient alert, patient awake and patient oriented x3 Cognition: normal cognition Speech: speech normal Extrem General: capillary refill normal and No edema Psych Appearance: grossly normal and well kempt Scores GCS Joshua coma scale eye opening: Spontaneous Joshua coma scale verbal response: Orientated Joshua coma scale motor response: Obey commands Joshua coma scale total score: 15 Course Orders Ordered: ED Orders 09/22/20 08:32 XR chest 1V Stat 09/22/20 08:33 EKG-12 Lead Stat 09/22/20 08:36 Basic Metabolic Panel Stat Complete Blood Count AUTO DIFF Stat Hepatic (Liver) Panel Stat Lactate (Lactic Acid) Stat Lipase Stat NT-proBNP (BNP-Adult 18+) Stat Partial Thromboplastin Time Stat Procalcitonin Stat Prothrombin Time INR Stat Troponin & CK Cardiac Panel Stat 09/22/20 08:43 COVID19 -ED/INPAT/OR/L&D Stat 09/22/20 09:30 CT angio chest PE protocol Stat Sodium Chloride (Normal Saline 0.9%) 1,000 mls @ 100 mls/hr IV CONT JOHN Last Admin: 09/22/20 09:16 Dose: 100 mls/hr Documented by: ROOPA DILTIAZEM (Diltiazem 125 Mg/125 Ml-D5w) 125 mg in 125 mls @ 5 mls/hr IV TITRATE JOHN; Protocol Last Admin: 09/22/20 12:06 Dose: 5 mg/hr, 5 mls/hr Documented by: OROPA Discontinued Medications Sodium Chloride (Normal Saline 0.9%) 500 mls @ 1,000 mls/hr IV BOLUS ONE Stop: 09/22/20 13:07 Last Infusion: 09/22/20 13:09 Dose: 0 mls/hr Documented by: Admin: 09/22/20 12:35 Dose: 1,000 mls/hr Documented by: ROOPA Metoprolol Tartrate (Lopressor) 5 mg IV NOW ONE Stop: 09/22/20 09:11 Last Admin: 09/22/20 09:16 Dose: 5 mg Documented by: ROOPA Vital Signs Vital signs: Vital Signs - 8 hr 09/22/20 08:26 09/22/20 08:27 09/22/20 08:28 Temperature 97.4 F L Pulse Rate 109 H 118 H 141 H Respiratory Rate 26 H Blood Pressure 125/88 125/88 Pulse Oximetry 91 92 92 09/22/20 08:30 09/22/20 09:00 09/22/20 09:30 Temperature Pulse Rate 139 H 143 H 128 H Respiratory Rate 26 H 20 22 Blood Pressure 114/76 116/73 95/65 Pulse Oximetry 93 96 96 09/22/20 09:47 09/22/20 10:00 09/22/20 10:30 Temperature Pulse Rate 125 H 128 H 128 H Respiratory Rate 24 22 20 Blood Pressure 108/69 92/65 102/65 Pulse Oximetry 97 95 95 09/22/20 11:00 09/22/20 11:30 09/22/20 12:00 Temperature Pulse Rate 136 H 143 H Respiratory Rate 23 21 Blood Pressure 99/58 L 100/65 99/62 Pulse Oximetry 93 95 09/22/20 12:10 09/22/20 12:20 09/22/20 12:30 Temperature Pulse Rate 134 H 129 H 130 H Respiratory Rate 21 24 23 Blood Pressure 98/63 88/69 L 102/70 Pulse Oximetry 94 93 94 09/22/20 12:40 09/22/20 12:50 09/22/20 13:00 Temperature Pulse Rate 143 H 136 H 128 H Respiratory Rate 25 H 23 24 Blood Pressure 102/58 L 102/57 L 112/68 Pulse Oximetry 95 92 91 09/22/20 13:10 09/22/20 13:11 09/22/20 13:20 Temperature Pulse Rate 125 H 127 H 142 H Respiratory Rate 24 23 25 H Blood Pressure 97/53 L Pulse Oximetry 91 91 92 09/22/20 13:21 09/22/20 13:30 09/22/20 13:40 Temperature Pulse Rate 120 H 142 H 108 H Respiratory Rate 24 23 26 H Blood Pressure 88/56 L 93/50 L 89/57 L Pulse Oximetry 93 91 92 Medical Decision Making Lab Data Lab results reviewed: Yes I reviewed the patient's lab results. Result diagrams: 09/22/20 08:36 09/22/20 08:36 Labs: Lab Results 09/22/20 09/22/20 09/22/20 Range/Units 08:36 08:36 08:36 WBC 25.2 H (4.5-11.0) X10^3/uL RBC 3.90 L (4.5-5.9) X10^6/uL Hgb 9.6 L (13.5-17.5) g/dL Hct 29.7 L (41-53) % MCV 76.3 L (80-100) fL MCH 24.7 L (26-34) PG MCHC 32.4 (30-36) % RDW 16.6 H (11.6-14.8) % Plt Count 513 H (150-400) X10^3/uL Neut % (Auto) Not Reportable Lymph % (Auto) Not Reportable Foster % (Auto) Not Reportable Eos % (Auto) Not Reportable Baso % (Auto) Not Reportable Lymph # (Auto) Not Reportable Foster # (Auto) Not Reportable Baso # (Auto) Not Reportable Total Counted 100 Seg Neutrophils % 77.0 H (38-70) % Band Neutrophils % 14.0 H (3-7) % Lymphocytes % (Manual) 1.0 L (25-45) % Atypical Lymphs % 4.0 H ( - 0) % Monocytes % (Manual) 4.0 (2-11) % Neutrophils # (Manual) 62030 H (9249-4619) /uL RBC Morphology Normal morphology Hypochromasia 2+ H Anisocytosis 2+ H PT 16.6 H (10.1-12.7) SECONDS INR 1.4 H (0.9-1.3) APTT 28 (26.4-36.2) SECONDS Sodium 119 L* (137-145) mmol/L Potassium 4.8 (3.4-5.1) mmol/L Chloride 86 L (98-107) mmol/L Carbon Dioxide 30 (22-32) mmol/L BUN 21 H (9-20) mg/dL Creatinine 0.57 L (0.66-1.25) mg/dL Estimated GFR > 60.0 (>60) mL/min BUN/Creatinine Ratio 36.8 H (6-22) Glucose 97 (80-110) mg/dL Lactate (0.7-2.1) mmol/L Calcium 8.7 (8.4-10.2) mg/dL Total Bilirubin 1.0 (0.2-1.3) mg/dL Conjugated Bilirubin 0.0 (0.0-0.3) md/dL Unconjugated Bilirubin 0.6 (0.0-1.1) mg/dL AST 62 H (17-59) IU/L ALT 71 H (<50) IU/L Alkaline Phosphatase 217 H (38-126) U/L Total Creatine Kinase 31 L (55-170) U/L CK-MB (CK-2) TNP CK-MB (CK-2) Rel Index TNP Troponin I < 0.012 (0.01-0.034) ng/mL NT-Pro-B Natriuret Pep 1460 H (<125) pg/mL Total Protein 6.5 (6.3-8.2) g/dL Albumin 2.7 L (3.5-5.0) g/dL Globulin 3.8 (1.7-4.1) g/dL Albumin/Globulin Ratio 0.7 L (1.0-2.8) Lipase 54 (23-300) U/L Procalcitonin (<0.5) ng/mL COVID-19 PCR (Negative) 09/22/20 09/22/20 09/22/20 Range/Units 08:36 08:36 08:43 WBC (4.5-11.0) X10^3/uL RBC (4.5-5.9) X10^6/uL Hgb (13.5-17.5) g/dL Hct (41-53) % MCV (80-100) fL MCH (26-34) PG MCHC (30-36) % RDW (11.6-14.8) % Plt Count (150-400) X10^3/uL Neut % (Auto) Lymph % (Auto) Foster % (Auto) Eos % (Auto) Baso % (Auto) Lymph # (Auto) Foster # (Auto) Baso # (Auto) Total Counted Seg Neutrophils % (38-70) % Band Neutrophils % (3-7) % Lymphocytes % (Manual) (25-45) % Atypical Lymphs % ( - 0) % Monocytes % (Manual) (2-11) % Neutrophils # (Manual) (4892-2520) /uL RBC Morphology Hypochromasia Anisocytosis PT (10.1-12.7) SECONDS INR (0.9-1.3) APTT (26.4-36.2) SECONDS Sodium (137-145) mmol/L Potassium (3.4-5.1) mmol/L Chloride (98-107) mmol/L Carbon Dioxide (22-32) mmol/L BUN (9-20) mg/dL Creatinine (0.66-1.25) mg/dL Estimated GFR (>60) mL/min BUN/Creatinine Ratio (6-22) Glucose (80-110) mg/dL Lactate 1.6 (0.7-2.1) mmol/L Calcium (8.4-10.2) mg/dL Total Bilirubin (0.2-1.3) mg/dL Conjugated Bilirubin (0.0-0.3) md/dL Unconjugated Bilirubin (0.0-1.1) mg/dL AST (17-59) IU/L ALT (<50) IU/L Alkaline Phosphatase (38-126) U/L Total Creatine Kinase (55-170) U/L CK-MB (CK-2) CK-MB (CK-2) Rel Index Troponin I (0.01-0.034) ng/mL NT-Pro-B Natriuret Pep (<125) pg/mL Total Protein (6.3-8.2) g/dL Albumin (3.5-5.0) g/dL Globulin (1.7-4.1) g/dL Albumin/Globulin Ratio (1.0-2.8) Lipase (23-300) U/L Procalcitonin 0.52 H (<0.5) ng/mL COVID-19 PCR Negative (Negative) Imaging Data Chest x-ray: Radiologist's Impression: [address] [address] XRay Report Signed Patient: Kal Grimm FMR#: [id number] : [id number] Age/Sex: 75 / MDate of Service: 09/22/20 Loc: ED Accession Number: [id number] Procedure: XR chest 1V Ordering Provider: Damien Perez D.O. PROCEDURE: XR CHEST 1V INDICATIONS: SOB TECHNIQUE: One view of the chest was acquired. COMPARISON: [facility], CT, CT CHEST ABD PEL W CON, 08/23/2020, 15:13. [facility], CR, XR CHEST 2V, 09/11/2020, 21:12. FINDINGS: Surgical changes and devices: None. Lungs and pleura: Mild diffuse interstitial prominence, stable. Redemonstration of left basilar consolidation consistent with left lower lobe mass seen on comparison studies. No new focal airspace disease. No pneumothorax. Persistent small bilateral pleural effusions. Mediastinum: Mediastinal contours appear stable with prominent mediastinal contours compatible with previously noted adenopathy. Heart size is normal. Bones and chest wall: No suspicious bony lesions. Overlying soft tissues appear unremarkable. IMPRESSION: Stable radiographic evaluation of the chest with persistent int erstitial prominence, small bilateral pleural effusions, and stable left lower lobe consolidation. Left lower lobe consolidation correlates with pulmonary mass seen on comparison CT. No new airspace disease identified. Dictated by: Jesus Bowles M.D. on 09/22/2020 at 8:23 Approved by: Jesus Bowles M.D. on 09/22/2020 at 8:28 CT scan - chest: Radiologist's Impression: [address] [address] [address] Scan Report Signed Patient: Kal Grimm FMR#: [id number] : [id number] Age/Sex: 75 / MDate of Service: 09/22/20 Loc: ED Accession Number: [id number] Procedure: CT angio chest PE protocol Ordering Provider: Damien Perez D.O. PROCEDURE: CT ANGIO CHEST PE PROTOCOL INDICATIONS: shortness of breath, tachycardia TECHNIQUE: After the administration of intravenous contrast, 2 mm thick sections acquired from the pulmonary apices to the posterior costophrenic angles. 3-dimensional maximum intensity projection (MIP) coronal and sagittal reformats were then acquired through the thorax. For radiation dose reduction, the following was used: automated exposure control, adjustment of mA and/or kV according to patient size. COMPARISON: [facility], CT, CT CHEST ABD PEL W CON, 08/23/2020, 15:13. [facility], CR, XR CHEST 1V, 09/22/2020, 9:06. FINDINGS: Image quality: Excellent. Pulmonary arteries: Pulmonary arteries are normal in size, and demonstrate no intraluminal filling defects to suggest central pulmonary embolism. Lungs and pleura: New moderate size right and small left pleural effusions with associated compressive atelectasis. New 4 mm left upper lobe nodule seen on image 123, series 5. Accounting for differences in imaging technique, pleural effusion and associated compressive atelectasis, relatively stable appearance of irregular left lower lobe pulmonary mass which abuts the left major fissure. New 5 mm right upper lobe nodule seen on image 107, series 5. No pneumothorax. Mediastinum: Heart size is normal, without pericardial effusion. Scattered atherosclerotic calcifications of the coronary arteries are noted. Significant interval increase in size of mediastinal lymphadenopathy. The largest is again noted in the subcarinal region now measuring approximately 10.0 x 9.0 cm in transverse dimension (image 85, series 4), previously 6.3 x 7.6 cm. There is increased encasement of the central airways to include the leeanna and proximal segments of the main bronchi. This results in mild narrowing. There is also mass effect upon the posterior margin of the heart as well as mass effect on the left ventricle. Mass effect also compresses the proximal pulmonary veins. No hilar adenopathy. Thoracic aorta is normal in caliber and enhancement. Esophagus is distended proximal to large subcarinal lymphadenopathy. Bones and chest wall: No suspicious bony lesions. Ribs and thoracic spine appear intact throughout. Thyroid gland is unremarkable. No axillary or supraclavicular gregoria opathy. Abdomen: Stable appearance of the liver. Cholelithiasis. Visualized upper abdominal solid organs appear normal in the early arterial phase of enhancement. IMPRESSION: 1. No acute pulmonary emboli. 2. Significant interval enlargement of numerous mediastinal lymph nodes but most notably involving the previously described subcarinal adenopathy which now causes mass effect upon the left atrium and adjacent pulmonary veins. Subcarinal adenopathy also encases the central airways with associated narrowing. 3. New subcentimeter bilateral upper lobe pulmonary nodules which in combination with progression of mediastinal adenopathy is compatible with disease progression. 4. New bilateral pleural effusions with associated atelectasis. 5. Cholelithiasis without CT evidence for acute cholecystitis. Dictated by: Jesus Bowles M.D. on 09/22/2020 at 8:56 Approved by: Jesus Bowles M.D. 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 He is clinically worse today than my exam of him several weeks ago. Has recently had a bronchoscopy with biopsy but they do not know the results of this. Patient arrived in atrial fibrillation with rapid ventricular response. He was initially given metoprolol which improved his heart rate but also dropped his blood pressure. His blood pressure did respond with time. He was then started on small dose of Cardizem. His blood pressure again began to drop into the 90s systolic however his mean arterial pressure was around 70. He was never altered during this time. He was given some fluids which helped his blood pressure is well. Patient's respiratory distress not at a point where he needs CPAP or intubation however he is tachypneic and can only talk in few word sentences. Repeat CT scan of his chest shows no signs of pulmonary embolism however compared with the CT 1 month ago is significantly worst with regard to the adenopathy compressing on his heart and his airway. I did consider an infectious source however given his clinical presentation I feel that this is unlikely. He was not given antibiotics here in the ER. I did discuss the case with the hospitalist at [facility]. This is where his oncologist is located however they felt it would be better for him to be transferred to a facility that has more capability. I did discuss the case with Dr. Chambers the hospitalist at [facility] in [place] who recommended that I talk with the intensive this. I then talked with Dr. Reeder with the ICU who accepts the patient. I did inform the patient and his family at bedside regarding all of the findings and the lab reports in the need for transfer. Patient is stable for transfer. Discharge Plan Departure Patient Disposition: [facility] Clinical Impression: Shortness of breath, Petechiae, Hyponatremia Lung cancer Qualifiers: Laterality: left Lung location: unspecified part of lung Qualified Code(s): C34.92 - Malignant neoplasm of unspecified part of left bronchus or lung Atrial fibrillation Qualifiers: Atrial fibrillation type: unspecified Qualified Code(s): I48.91 - Unspecified atrial fibrillation Prescriptions: No Action albuterol sulfate 90 mcg/actuation HFA aerosol inhaler 2 puff INHALATION Q4H PRN (Reason: shortness of breath or wheezing) Qty: 6.7 RF: 1 ondansetron HCl [Zofran] 4 mg tablet 4 mg PO Q6H PRN (Reason: nausea and vomiting) Qty: 30 RF: 0 benzonatate [Tessalon Perles] 100 mg capsule 100 mg PO BID-TID PRN (Reason: cough) Qty: 60 RF: 1 trazodone 50 mg tablet 25 mg PO BEDTIME PRN (Reason: insomnia) Qty: 30 RF: 2 baclofen 10 mg tablet 5 mg PO BID PRN (Reason: spasm) Qty: 30 RF: 0 furosemide 20 mg tablet 10 mg PO BID Qty: 14 RF: 0 tamsulosin 0.4 mg capsule 0.4 mg PO BEDTIME Qty: 90 RF: 3 pravastatin 40 mg tablet 20 mg PO BEDTIME Qty: 45 RF: 3 aspirin 81 mg Tablet,Delayed Release (Dr/Ec) 81 mg PO DAILY RF: 0 (DME) ResMed AirSense 10 CPAP Qty: 1 RF: 0 Referrals: Caryn Rivas DO [Primary Care Provider] -
[2020-09-22 08:52] LABS: INR 1.4 (0.9-1.3); Prothrombin Time 16.6 SECONDS (10.1-12.7)
[2020-09-22 08:54] LABS: Hematocrit 29.7 % (41-53); Hemoglobin 9.6 g/dL (13.5-17.5); Mean Corpuscular HGB Conc 32.4 % (30-36); Mean Corpuscular Hemoglobin 24.7 PG (26-34); Mean Corpuscular Volume 76.3 fL (80-100); Platelet Count 513 X10^3/uL (150-400); Red Cell Distribution Width 16.6 % (11.6-14.8); White Blood Cell Count 25.2 X10^3/uL (4.5-11.0)
[2020-09-22 08:55] LABS: Add Manual Diff / Slide Review YES; Lactate (Lactic Acid) 1.6 mmol/L (0.7-2.1); PTT Partial Thromboplastin Tim 28 SECONDS (26.4-36.2)
[2020-09-22 08:58] LABS: Alanine Aminotransferase 71 IU/L (<50); Albumin 2.7 g/dL (3.5-5.0); Albumin Globulin Ratio 0.7 (1.0-2.8); Alkaline Phosphatase 217 U/L (38-126); Aspartate Aminotransferase 62 IU/L (17-59); BUN Creatinine Ratio 36.8 (6-22); Bilirubin Unconjugated 0.6 mg/dL (0.0-1.1); Blood Urea Nitrogen 21 mg/dL (9-20); Calcium 8.7 mg/dL (8.4-10.2); Carbon Dioxide 30 mmol/L (22-32); Chloride 86 mmol/L (98-107); Creatine Kinase 31 U/L (55-170); Estimated Glomerular Filt Rate > 60.0 mL/min (>60); Globulin 3.8 g/dL (1.7-4.1); Glucose 97 mg/dL (80-110); HEMOLYSIS < 15 (0-50); Lipase 54 U/L (23-300); Potassium 4.8 mmol/L (3.4-5.1); Total Protein 6.5 g/dL (6.3-8.2)
[2020-09-22 09:01] LABS: COVID19 -Nasal RAPID Negative (Negative)
[2020-09-22 09:06] LABS: Sodium 119 mmol/L (137-145)
[2020-09-22 09:09] LABS: NT-proBNP (BNP-Adult 18+) 1460 pg/mL (<125); Troponin I < 0.012 ng/mL (0.01-0.034)
[2020-09-22 09:13] LABS: Procalcitonin 0.52 ng/mL (<0.5)
[2020-09-22] MEDS: METOPROLOL TARTRATE 5 MG/5 ML INJ IV (09:16)
[2020-09-22] MEDS: SODIUM CHLORIDE 0.9% 1,000 ML 100 ML IV (09:16)
--- NOTE | 2020-09-22 09:30 | DI.CT.S_ITS ---
PROCEDURE: CT ANGIO CHEST PE PROTOCOL INDICATIONS: shortness of breath, tachycardia TECHNIQUE: After the administration of intravenous contrast, 2 mm thick sections acquired from the pulmonary apices to the posterior costophrenic angles. 3-dimensional maximum intensity projection (MIP) coronal and sagittal reformats were then acquired through the thorax. For radiation dose reduction, the following was used: automated exposure control, adjustment of mA and/or kV according to patient size. COMPARISON: [facility], CT, CT CHEST ABD PEL W CON, 08/23/2020, 15:13. [facility], CR, XR CHEST 1V, 09/22/2020, 9:06. FINDINGS: Image quality: Excellent. Pulmonary arteries: Pulmonary arteries are normal in size, and demonstrate no intraluminal filling defects to suggest central pulmonary embolism. Lungs and pleura: New moderate size right and small left pleural effusions with associated compressive atelectasis. New 4 mm left upper lobe nodule seen on image 123, series 5. Accounting for differences in imaging technique, pleural effusion and associated compressive atelectasis, relatively stable appearance of irregular left lower lobe pulmonary mass which abuts the left major fissure. New 5 mm right upper lobe nodule seen on image 107, series 5. No pneumothorax. Mediastinum: Heart size is normal, without pericardial effusion. Scattered atherosclerotic calcifications of the coronary arteries are noted. Significant interval increase in size of mediastinal lymphadenopathy. The largest is again noted in the subcarinal region now measuring approximately 10.0 x 9.0 cm in transverse dimension (image 85, series 4), previously 6.3 x 7.6 cm. There is increased encasement of the central airways to include the leeanna and proximal segments of the main bronchi. This results in mild narrowing. There is also mass effect upon the posterior margin of the heart as well as mass effect on the left ventricle. Mass effect also compresses the proximal pulmonary veins. No hilar adenopathy. Thoracic aorta is normal in caliber and enhancement. Esophagus is distended proximal to large subcarinal lymphadenopathy. Bones and chest wall: No suspicious bony lesions. Ribs and thoracic spine appear intact throughout. Thyroid gland is unremarkable. No axillary or supraclavicular adenopathy. Abdomen: Stable appearance of the liver. Cholelithiasis. Visualized upper abdominal solid organs appear normal in the early arterial phase of enhancement. IMPRESSION: 1. No acute pulmonary emboli. 2. Significant interval enlargement of numerous mediastinal lymph nodes but most notably involving the previously described subcarinal adenopathy which now causes mass effect upon the left atrium and adjacent pulmonary veins. Subcarinal adenopathy also encases the central airways with associated narrowing. 3. New subcentimeter bilateral upper lobe pulmonary nodules which in combination with progression of mediastinal adenopathy is compatible with disease progression. 4. New bilateral pleural effusions with associated atelectasis. 5. Cholelithiasis without CT evidence for acute cholecystitis. Dictated by: Jesus Bowles M.D. on 09/22/2020 at 8:56 Approved by: Jesus Bowles M.D. on 09/22/2020 at 9:22
[2020-09-22 10:27] LABS: Neutrophils Absolute Manual 22932 /uL (3000-5900); RBC Morphology Normal Morphology; Total Cells Counted 100
[2020-09-22 10:28] LABS: Anisocytosis 2+; Hypochromasia 2+
[2020-09-22] MEDS: DILTIAZEM 125 MG/125 ML PIGGYBACK IV (12:06)
[2020-09-22] MEDS: SODIUM CHLORIDE 0.9% 500 ML 1000 ML IV (12:35)
--- NOTE | 2020-10-07 11:12 | PC.NURSE ---
Late entry: Diltiazem infusion discontinued in ER 1515 hours.
--- NOTE | 2020-10-28 14:49 | PC.NURSE ---
Late entry: Diltiazem gtt continued on transfer, stop time for billing purposes is 1515 hrs.
== END 2020-09-22 15:15 | disposition short-term general hospital (02) ==
PROVIDERS: Emergency Provider Emergency Medicine; PCP Family Medicine
DX: C34.92 Malignant neoplasm of unspecified part of left bronchus or lung (principal); I48.91 Unspecified atrial fibrillation; E87.1 Hypo-osmolality and hyponatremia; R00.0 Tachycardia, unspecified; R23.3 Spontaneous ecchymoses; R53.83 Other fatigue
CPT/HCPCS: 36415; 51798; 71045; 71275; 80048; 80076; 82550; 83605; 83690; 83880; 84145; 84484; 85025; 85610; 85730; 87635; 93005; 96365; 96366; 96375; 99285; Q9967